=== PATIENT | female | born 1980 | race Caucasian/White ===

== ENCOUNTER 2020-10-07 20:09 | Emergency (ER) | payer BC, SELFPAY ==
[2020-10-07 20:25] VITALS: BP 128/76; PULSE 80; RESP 16; TEMP 36.2; O2SAT 99
[2020-10-07 20:29] VITALS: BP 128/76; PULSE 80; RESP 16; TEMP 36.2; O2SAT 99
--- NOTE | 2020-10-07 20:39 | PC.NURSE ---
SL inserted. labs drawn. patient on BP and O2 monitors. family member at bedside. call light in reach. aware of current treatment plan. protocol orders entered. waiting for further orders from provider.
[2020-10-07 20:44] LABS: Basophils Absolute Auto 0.1 K/mm3 (0.0-0.1); Basophils Percent Auto 0.7 % (0.2-1.2); Eosinophils Absolute Auto 0.3 K/mm3 (0-0.3); Eosinophils Percent Auto 3.8 % (0-4.4); Hematocrit 35.5 % (37.0-47.0); Hemoglobin 10.6 g/dL (12.0-15.0); Immature Granulocyte Absolute 0.03 K/mm3 (0.00-0.031); Immature Granulocyte Percent A 0.3 % (0-0.5); Lymphocytes Absolute Auto 3.04 K/mm3 (0.9-3.2); Lymphocytes Percent Auto 35.3 % (18.3-44.2); Mean Corpuscular HGB Conc 29.9 g/dl (32-36); Mean Corpuscular Hemoglobin 22.4 pg (26-34); Mean Corpuscular Volume 74.9 fl (80-100); Mean Platelet Volume 11.5 fl (7.4-10.4); Monocytes Absolute Auto 0.5 K/mm3 (0.1-0.6); Monocytes Percent Auto 5.6 % (2.6-8.5); Neutrophils Absolute Auto 4.7 K/mm3 (1.3-6.7); Neutrophils Percent Auto 54.3 % (45.5-73.1); Platelet Count Result 312 k/mm3 (150-375); Red Blood Count 4.74 M/mm3 (4.2-5.4); Red Cell Distribution Width 16.8 % (11.5-14.5); White Blood Count 8.6 K/mm3 (4.5-10.0)
[2020-10-07 20:56] LABS: Alanine Aminotransferase 27 U/L (4-35); Albumin Level 3.9 g/dL (3.5-5.1); Alkaline Phosphatase 108 U/L (38-126); Anion Gap 8 mmol/L (8-16); Aspartate Amino Transferase 22 U/L (14-36); Bilirubin,Total 0.3 mg/dL (0.2-1.3); Blood Urea Nitrogen 13 mg/dL (7-17); Carbon Dioxide 23 mmol/L (22-30); Chloride 110 mmol/L (98-107); Estimated CRCL calculation 83 ml/min; Estimated Glomerular Filt Rate > 60; Glucose 114 mg/dL (65-105); Potassium 3.9 mmol/L (3.4-5.0); Sodium 141 mmol/L (137-145)
[2020-10-07 20:59] LABS: Hypochromasia 1+ (NORMAL); Platelet Estimate Adequate (Adequate)
[2020-10-07 21:01] LABS: Prothrombin Time 13.8 Seconds (11.1-14.7)
[2020-10-07 21:03] LABS: Partial Thromboplastin Time 25.8 SECONDS (22.3-36.8)
[2020-10-07 21:18] VITALS: O2SAT 100
--- NOTE | 2020-10-07 21:28 | PC.NURSE ---
resting on stretcher. no change in condition. alert. oriented. family member at bedside. waiting for all tests to be resulted.
--- NOTE | 2020-10-07 21:31 | ED.GIBLEED ---
HPI - GI Bleed General Chief complaint: GI Bleed Stated complaint: blood in stool Time Seen by Provider: 10/07/20 21:11 Source: patient Mode of arrival: ambulatory Limitations: no limitations History of Present Illness HPI Narrative: Patient is a 3-year-old female sent here by her PCP due to 3+ Hemoccult test. Patient states that my iron was low that is why they tested me , denies any symptoms.. Patient denies any black stool or bright red blood in her stool. Patient denies abdominal pain, hemoptysis, hematemesis, melena or hematochezia. Patient denies fever or chills. Related Data Home Medications Medication Instructions Recorded Confirmed sumatriptan succinate 25 mg tablet 25 mg PO .prn tablet 08/11/20 09/30/20 metoprolol tartrate 25 mg tablet See Rx Instructions PO BID tablet 08/18/20 09/30/20 Allergies Allergy/AdvReac Type Severity Reaction Status Date / Time codeine AdvReac Mild Nausea Verified 10/07/20 20:38 Review of Systems Review of Systems: All systems reviewed & are unremarkable except as noted in HPI and below Constitutional: Constitutional: Denies body ache(s), Denies chills, Denies excessive sweating, Denies fatigue, Denies fever(s), Denies headache(s), Denies lethargy, Denies malaise, Denies weakness and Denies weight loss Eyes: Eyes: Denies blurry vision, Denies change in vision and Denies loss of vision ENT: Denies dizziness, Denies ear discharge, Denies headache(s), Denies lip swelling, Denies epistaxis, Denies nasal congestion, Denies neck pain, Denies throat swelling and Denies tongue swelling Cardiovascular: Cardiovascular: Denies chest pain, Denies chest pain at rest, Denies chest pain with activity, Denies diaphoresis, Denies rapid heart rate, Denies edema, Denies irregular heart rhythm, Denies lightheadedness, Denies palpitations, Denies dyspnea and Denies dyspnea on exertion Respiratory: Respiratory: Denies chest congestion, Denies cough, Denies hemoptysis, Denies dyspnea and Denies dyspnea on exertion Gastrointestinal: Gastrointestinal: Denies abdominal pain, Denies melena, Denies hematochezia, Denies diarrhea, Denies nausea, Denies vomiting and Denies hematemesis Musculoskeletal: Musculoskeletal: Denies abnormal gait, Denies deformity, Denies joint swelling, Denies limited range of motion, Denies neck pain and Denies numbness Neurologic: Denies Abnormal speech present, Denies abnormal gait, Denies confusion, Denies dizziness, Denies headache(s), Denies focal weakness, Denies loss of vision, Denies numbness, Denies Other visual disturbances, Denies Sensory deficit (Neuro) and Denies weakness Psychiatric: Psychiatric: Denies confusion, Denies depression, Denies auditory hallucinations, Denies homicidal ideation and Denies suicidal ideation Endocrine: Endocrine: Denies cold intolerance, Denies excessive sweating, Denies fatigue, Denies heat intolerance and Denies palpitations Hematologic/Lymphatic: Hematologic/Lymphatic: Denies easy bleeding and Denies easy bruising Allergic/Immunologic: Allergic/Immunologic: Denies lip swelling, Denies throat swelling and Denies tongue swelling PMFSH Past Medical History Medical History Allergies Anxiety Cervical cancer Depression Encounter for Routine Gynecological Examination GERD (gastroesophageal reflux disease) Headache, migraine Heart attack Heart attack History of blood clots History of miscarriage PTSD (post-traumatic stress disorder) Surgical History Surgical History Fibroid, uterine 2017 H/O heart artery stent 03/08/2020 H/O laparoscopy H/O tubal ligation 2005 History of appendectomy age 10 History of cholecystectomy age 29 Hx of anterior cruciate ligament surgery 03/2018 Hx of foot surgery 2 screws and ligament left foot 07/2019 Malignant tumor of uterus 2017 Status post balloon dilatation of esophageal stricture
--- NOTE | 2020-10-07 21:41 | PC.NURSE ---
sitting on stretcher. family member in room. waiting for further orders.
[2020-10-07] MEDS: SODIUM CHLORIDE 0.9% IV 1,000 ML 999 ML IV CONT (22:02)
[2020-10-07 23:42] VITALS: BP 102/67; PULSE 82; RESP 18; O2SAT 98
== END 2020-10-07 23:44 | disposition home or self-care (01) ==
PROVIDERS: Emergency Medicine; Emergency Provider Emergency Medicine; PCP Family Medicine
DX: K92.2 Gastrointestinal hemorrhage, unspecified (principal); K21.9 Gastro-esophageal reflux disease without esophagitis; I25.2 Old myocardial infarction; F32.9 Major depressive disorder, single episode, unspecified; F41.9 Anxiety disorder, unspecified; F43.10 Post-traumatic stress disorder, unspecified; Z85.41 Personal history of malignant neoplasm of cervix uteri; Z95.5 Presence of coronary angioplasty implant and graft; Z87.891 Personal history of nicotine dependence
CPT/HCPCS: 36415; 80053; 85025; 85610; 85730; 86850; 86900; 86901; 96360; 96361; 99283; J7030

== ENCOUNTER 2020-10-09 09:09 | Outpatient (CLI) | payer BC, SELFPAY ==
--- NOTE | 2020-10-09 09:14 | ECHO_ITS ---
Patient Info Name: Bryce Gaspar Age: 39 years : 1980 Gender: Female Ht: 64 in Wt: 210 lbs BSA: 2.12 m2 HR: 66 bpm BP: 89 / 68 mmHg Technical Quality: Good Exam Date: 10/09/2020 9:34 AM Exam Location: [facility] Patient Status: Outpatient Admit Date: 10/09/2020 Staff Ordering Physician: Edwardo Vazquez DO Glove Operator: Diane La RDCS Attending Provider: Edwardo Vazquez DO Referring Physician: George VEGAS; Exam Type: CA echo doppler color flow Study Info Indications - intracardiac thrombosis Complete two-dimensional, color flow and Doppler transthoracic echocardiogram is performed. Summary 1. Complete two-dimensional, color flow and Doppler transthoracic echocardiogram is performed. 2. Left ventricular chamber dimension is normal. 3. Left ventricular systolic function is normal, estimated at 55-60%. 4. The left ventricular diastolic function is normal. 5. No mural apical thrombus. 6. E/e' 9 is minimally elevated. 7. Global longitudinal strain is normal at -18.6%. 8. There is mild mitral valve regurgitation. 9. There is mild tricuspid valve regurgitation. 10. No pulmonary hypertension, estimated pulmonary arterial systolic pressure is 26 mmHg. Left Ventricle E/e' 9 is minimally elevated. Global longitudinal strain is normal at -18.6%. No mural apical thrombus. Left ventricular chamber dimension is normal. Left ventricular systolic function is normal, estimated at 55-60%. The left ventricular diastolic function is normal. Right Ventricle Right ventricular chamber dimension is normal. Right ventricular systolic function is normal. Left Atria Left atrial chamber dimension is normal. Right Atria Right atrial chamber dimension is normal. Aortic Valve The aortic valve is trileaflet. There is no aortic valve stenosis. There is no aortic valve regurgitation. Pulmonic Valve There is no pulmonic regurgitation. Mitral Valve There is no mitral valve stenosis. There is mild mitral valve regurgitation. Tricuspid Valve There is mild tricuspid valve regurgitation. No pulmonary hypertension, estimated pulmonary arterial systolic pressure is 26 mmHg. Pericardium/Pleural There is no pericardial effusion. Inferior Vena Cava Normal inferior vena cava with >50% collapse upon inspiration consistent with normal right atrial pressure, 5 mmHg. Aorta The aortic root size at the sinus of Valsalva is normal. Left Ventricular Outflow Tract Name Value Normal LVOT 2D LVOT Diameter 2.0 cm LVOT Doppler LVOT Peak Gradient 5 mmHg LVOT Mean Gradient 3 mmHg LVOT VTI 23 cm LVOT VTI/AV VTI Ratio 0.7 LVOT Stroke Volume 69 ml LVOT CO 13.8 l/min LVOT CI 6.5 l/min/m2 Pulmonic Valve Name Value Normal
== END 2020-10-09 09:10 | disposition home or self-care (01) ==
PROVIDERS: PCP Family Medicine; Visit Provider Internal Medicine Cardiovascular Disease
DX: I51.3 Intracardiac thrombosis, not elsewhere classified (principal); I34.0 Nonrheumatic mitral (valve) insufficiency; I36.1 Nonrheumatic tricuspid (valve) insufficiency
CPT/HCPCS: 93306

== ENCOUNTER → 2020-11-04 00:47 | Outpatient (CLI) | payer BC, SELFPAY ==
[2020-11-04 19:08] LABS: SARS-CoV-2 RNA PCR Negative
== END ==
PROVIDERS: PCP Family Medicine; Visit Provider Internal Medicine Gastroenterology
DX: Z01.812 Encounter for preprocedural laboratory examination (principal); Z20.822 Contact with and (suspected) exposure to COVID-19
CPT/HCPCS: C9803; U0003; U0005

== ENCOUNTER 2020-11-07 00:37 | Day surgery (SDC) | payer BC, SELFPAY ==
[2020-10-28 15:52] VITALS: BMI 37.3
--- NOTE | 2020-11-06 13:32 | WPDANESEPPF ---
Anes - Initial Pre Proc Eval Procedure: Operation Date: 11/07/20 09:00 Proposed Procedures p Esophagogastroduodenoscopy & Colonoscopy - Spike Borrego MD Date/Time: 11/06/20 13:32 Surgeon: Spike Borrego MD Pre Op Diagnosis: Anemia Patient Data Age: 40 Gender: F Height: 1.63 m Weight: 98.5 kg Allergies Allergy/AdvReac Type Severity Reaction Status Date / Time codeine AdvReac Mild Nausea Verified 11/07/20 07:55 Home Medications Medication Instructions Recorded Confirmed Type atorvastatin 40 mg tablet 40 mg PO DAILY #90 tablet 08/11/20 11/07/20 Rx clopidogrel 75 mg tablet 75 mg PO DAILY #90 tablet 08/11/20 11/07/20 Rx pantoprazole 40 mg tablet,delayed 40 mg PO BID #180 tablet 08/11/20 11/07/20 Rx release topiramate 25 mg tablet 25 mg PO DAILY #90 tablet 08/11/20 11/07/20 Rx metoprolol tartrate 25 mg tablet 6.25 mg PO BID tablet 08/18/20 11/07/20 History folic acid 1 mg tablet 1 mg PO DAILY #90 tablet 09/25/20 11/07/20 Rx sodium,potassium,mag sulfates 17.5 See Rx Instructions PO .COMPLEX 10/14/20 11/07/20 Rx gram-3.13 gram-1.6 gram oral soln #354 ml clonazepam 0.5 mg tablet 0.5 mg PO BID PRN #30 tablet 11/04/20 11/07/20 Rx Patient hx anesthesia problems: none Family hx anesthesia problems: none PMFSH Past Medical History Medical History Allergies Anxiety Cervical cancer Depression Encounter for Routine Gynecological Examination GERD (gastroesophageal reflux disease) Headache, migraine Heart attack Heart attack History of blood clots History of miscarriage PTSD (post-traumatic stress disorder) Surgical History Surgical History Fibroid, uterine 2017 H/O heart artery stent 03/08/2020 H/O laparoscopy H/O tubal ligation 2005 History of appendectomy age 10 History of cholecystectomy age 29 Hx of anterior cruciate ligament surgery 03/2018 Hx of foot surgery 2 screws and ligament left foot 07/2019 Malignant tumor of uterus 2017 Status post balloon dilatation of esophageal stricture 9years old Family History Family History Father Carcinoma of colon Hypertension Depression Anxiety Mother Asthma Breast cancer Anxiety Depression Heart disease Cerebrovascular accident Sibling Asthma Anxiety Depression Unknown Cancer Son Asthma Anxiety Depression Heart disease Grandparent Heart disease Cerebrovascular accident Breast cancer Grandparent Diabetes mellitus Heart disease Cerebrovascular accident Social History Social History Smoking packs per day: 0.5 Smoking cigarettes per day: 10.0 Years smoked: 20 Smoking pack-years: 10.00 Smoking status: Former smoker Tobacco type: cigarettes Smoking end date: 03/09/20 Alcohol intake: never Substance use: current Substance use type: marijuana Other substance usage details: PRESCRIPTION Gender identity (if verbalized by the patient): Female Spiritual care concerns: No Agree to blood products: Yes Anes - Eval Final PreProcedure Day of Procedure 11/06/20 13:32 Patient weight: obese Heart: regular rate and rhythm Lungs: clear to auscultation and normal air movement Airway: Mallampati scale class II Neurological: alert and oriented Last oral intake: >/= 8 hours ASA classification: III Emergent: no Anesthetic plan: proceed Anesthesia type and monitoring: general GIVS Informed Consent: The patient's anesthetic plan and its attendant risks and benefits were discussed with the patient/family/POA. Questions were solicited and answers provided to the satisfaction of the patient/family/POA.
[2020-11-07 08:00] VITALS: BP 106/64; PULSE 76; RESP 20; TEMP 36.4; O2SAT 100
[2020-11-07] MEDS: LACTATED RINGERS 1,000 ML 150 ML IV CONT (08:11)
--- NOTE | 2020-11-07 09:07 | PM.HPGS ---
History of Present Illness History of Present Illness Consent: Risks, benefits, and alternatives have been discussed and questions answered. Patient agrees to proceed with procedure. Chief complaint: Anemia Narrative: Bryce Gaspar is a 40 year old female CAD, [place] with stent placed x 3 in 03/2020 on Plavix (Dr. Vazquez), GERD, menorrhagia, HLD, cervical dysplasia, cholecystectomy. We saw her recently because gerd, abdominal pain, anemia and positive Hemoccult, she is on protonix. Review of Systems Constitutional: Constitutional: Denies headache(s) and Denies weakness Eyes: Eyes: Denies blurry vision ENT: Reports Normal hearing present, Denies headache(s) and Denies neck pain Cardiovascular: Cardiovascular: Denies chest pain and Denies dyspnea Respiratory: Respiratory: Denies dyspnea Gastrointestinal: Gastrointestinal: Reports no additional gastrointestinal complaints Genitourinary: Genitourinary: Denies dysuria Musculoskeletal: Musculoskeletal: Denies neck pain Integumentary/Breasts: Skin/Breast: Denies dry skin Neurologic: Reports Normal hearing present, Denies headache(s) and Denies weakness Psychiatric: Psychiatric: Denies anxiety Endocrine: Endocrine: Denies change in body appearance Hematologic/Lymphatic: Hematologic/Lymphatic: Denies easy bleeding Allergic/Immunologic: Allergic/Immunologic: Denies urticaria PMFSH Past Medical History Medical History Allergies Anxiety Cervical cancer Depression Encounter for Routine Gynecological Examination GERD (gastroesophageal reflux disease) Headache, migraine Heart attack Heart attack History of blood clots History of miscarriage PTSD (post-traumatic stress disorder) Surgical History Surgical History Fibroid, uterine 2017 H/O heart artery stent 03/08/2020 H/O laparoscopy H/O tubal ligation 2005 History of appendectomy age 10 History of cholecystectomy age 29 Hx of anterior cruciate ligament surgery 03/2018 Hx of foot surgery 2 screws and ligament left foot 07/2019 Malignant tumor of uterus 2017 Status post balloon dilatation of esophageal stricture 9years old Family History Family History Father Carcinoma of colon Hypertension Depression Anxiety Mother Asthma Breast cancer Anxiety Depression Heart disease Cerebrovascular accident Sibling Asthma Anxiety Depression Unknown Cancer Son Asthma Anxiety Depression Heart disease Grandparent Heart disease Cerebrovascular accident Breast cancer Grandparent Diabetes mellitus Heart disease Cerebrovascular accident Social History Social History Smoking packs per day: 0.5 Smoking cigarettes per day: 10.0 Years smoked: 20 Smoking pack-years: 10.00 Smoking status: Former smoker Tobacco type: cigarettes Smoking end date: 03/09/20 Alcohol intake: never Substance use: current Substance use type: marijuana Other substance usage details: PRESCRIPTION Gender identity (if verbalized by the patient): Female Spiritual care concerns: No Agree to blood products: Yes Meds Home Medications and Allergies Home Medications Medication Instructions Recorded Confirmed Type atorvastatin 40 mg tablet 40 mg PO DAILY #90 tablet 08/11/20 11/07/20 Rx clopidogrel 75 mg tablet 75 mg PO DAILY #90 tablet 08/11/20 11/07/20 Rx pantoprazole 40 mg tablet,delayed 40 mg PO BID #180 tablet 08/11/20 11/07/20 Rx release topiramate 25 mg tablet 25 mg PO DAILY #90 tablet 08/11/20 11/07/20 Rx metoprolol tartrate 25 mg tablet 6.25 mg PO BID tablet 08/18/20 11/07/20 History folic acid 1 mg tablet 1 mg PO DAILY #90 tablet 09/25/20 11/07/20 Rx sodium,potassium,mag sulfates 17.5 See Rx Instructions PO .COMPLEX 10/14/20
--- NOTE | 2020-11-07 09:31 | SUR.OPER ---
RESOLUTION CLIP X1 LOT [id number]
[2020-11-07 09:37] VITALS: BP 89/56; PULSE 64; RESP 18; O2SAT 100
[2020-11-07 09:47] VITALS: BP 111/68; PULSE 68; RESP 20; O2SAT 100
[2020-11-07 09:57] VITALS: BP 104/58; PULSE 52; RESP 18; O2SAT 100
== END 2020-11-07 10:12 | disposition home or self-care (01) ==
PROVIDERS: PCP Family Medicine; Visit Provider Internal Medicine Gastroenterology
PROC: 0DJ08ZZ Inspection of Upper Intestinal Tract, Via Natural or Artificial Opening Endoscopic (ICD-10-PCS; CPT 43235; principal; 2020-11-07 09:00)
DX: D50.0 Iron deficiency anemia secondary to blood loss (chronic) (principal); K22.70 Barrett's esophagus without dysplasia; K29.50 Unspecified chronic gastritis without bleeding; K44.9 Diaphragmatic hernia without obstruction or gangrene; K21.00 Gastro-esophageal reflux disease with esophagitis, without bleeding; D12.5 Benign neoplasm of sigmoid colon; K92.1 Melena; K64.8 Other hemorrhoids; I25.2 Old myocardial infarction; F41.8 Other specified anxiety disorders; Z85.41 Personal history of malignant neoplasm of cervix uteri; F43.10 Post-traumatic stress disorder, unspecified; Z86.718 Personal history of other venous thrombosis and embolism; Z87.891 Personal history of nicotine dependence; F12.90 Cannabis use, unspecified, uncomplicated; E66.9 Obesity, unspecified; Z68.35 Body mass index [BMI] 35.0-35.9, adult; R10.30 Lower abdominal pain, unspecified; Z79.02 Long term (current) use of antithrombotics/antiplatelets; Z95.5 Presence of coronary angioplasty implant and graft
CPT/HCPCS: 45385; 43239; 88305; 88313; J2704; J7120

== ENCOUNTER 2020-12-02 08:25 | Outpatient (CLI) | payer BC, SELFPAY ==
--- NOTE | ~2020-12-02 | XR_ITS ---
EXAMINATION: XR UGIAC w barium swallow EXAM DATE: 12/02/2020 08:55 INDICATION: K21.00 - Gastro-esophageal reflux disease with esophagitis. Hamm's esophagus. TECHNIQUE: Standard single and double contrast barium esophagram and upper GI examination was perform ed. Pulsed dose reduction fluoroscopy was used with fluoroscopic time of 0.5 minutes. A total of 10 1 images obtained for the exam. The DAP for this procedure was 1.8 Gycm2. There is no prior study f or comparison. FINDINGS: The pharynx is symmetric and without evidence of mass lesion or mucosal irregularity. Ther e is no esophageal stricture, diverticulum or mass identified. Gastroesophageal junction is normal i n appearance. Reflux was not demonstrated during this examination. The stomach has a normal appearance without evidence of mass lesion, ulceration or filling defect. T here is normal rugal fold pattern. The duodenum and duodenal sweep are normal in appearance. IMPRESSION: Normal exam. Reviewed, dictated and finalized at location A. IMPRESSION: Normal exam.
== END 2020-12-02 08:26 | disposition home or self-care (01) ==
PROVIDERS: PCP Family Medicine; Visit Provider Surgery
DX: K21.00 Gastro-esophageal reflux disease with esophagitis, without bleeding (principal)
CPT/HCPCS: 74246

== ENCOUNTER 2021-04-10 08:19 | Outpatient (CLI) | payer BC, SELFPAY ==
--- NOTE | ~2021-04-10 | XR_ITS ---
EXAMINATION: XR UGI water soluble w sbs DATE: 04/10/2021 09:53 INDICATION: Nausea with vomiting TECHNIQUE: The patient drank water-soluble contrast. Conventional supine abdomen radiographs and fluo roscopy of the esophagus, stomach, and small bowel were performed. Fluoroscopy exposure time was 2.1 minutes. The DAP for this procedure was 59.099 Gycm2. COMPARISON: None. FINDINGS: UPPER GASTROINTESTINAL SERIES: There is no mass or stricture of the esophagus. Esophageal motility is normal. There is no hiatal her kim. There was no gastroesophageal reflux with provocative maneuvers. A moderate volume of contrast p ersists in the stomach at the 30 minute time point. The stomach shows a normal folding pattern.] SMALL BOWEL SERIES: Transit time from the stomach to proximal colon was approximately 30 minutes. There is normal caliber and mucosal fold pattern throughout the small bowel. Terminal ileum is normal. No tethering or abn ormal mass effect observed upon the small bowel with real-time fluoroscopy. IMPRESSION: 1. No definite correlate identified for the patient's symptoms. Moderate amount of contrast material the persisting in the stomach at the 30 minute time point. Reviewed, dictated and finalized at location A. IMPRESSION: 1. No definite correlate identified for the patient's symptoms. Moderate amount of contrast material the persisting in the stomach at the 30 minute time point .
[2021-04-10 10:23] LABS: Anion Gap 7 mmol/L (8-16); Blood Urea Nitrogen 8 mg/dL (7-17); Calcium 9.8 mg/dL (8.4-10.2); Carbon Dioxide 23 mmol/L (22-30); Chloride 110 mmol/L (98-107); Estimated Glomerular Filt Rate > 60; Glucose 114 mg/dL (65-110); Potassium 4.2 mmol/L (3.4-5.0); Sodium 140 mmol/L (137-145)
[2021-04-10 11:27] LABS: Beta HCG Quantitative < 2.39 mIU/ML
[2021-04-10 11:30] LABS: Folic Acid 13.4 ng/mL (2.76->20)
[2021-04-13 14:41] LABS: LH 10.7 mIU/mL (***); Progesterone 1.9 ng/mL (***); Prolactin 10.4 ng/mL (***)
[2021-04-16 18:08] LABS: Estradiol, Ultrasensitive 100 pg/mL
== END 2021-04-10 08:20 | disposition home or self-care (01) ==
PROVIDERS: PCP Family Medicine; Visit Provider Surgery
DX: R11.2 Nausea with vomiting, unspecified (principal); N91.2 Amenorrhea, unspecified; E87.6 Hypokalemia; D50.9 Iron deficiency anemia, unspecified
CPT/HCPCS: 36415; 74240; 74248; 80048; 82607; 82670; 82746; 83001; 83002; 84144; 84146; 84702

== ENCOUNTER 2021-04-24 07:07 | Outpatient (CLI) | payer BC, SELFPAY ==
--- NOTE | ~2021-04-24 | NM_ITS ---
EXAM: NM gastric emptying study DATE: 04/24/2021 12:36 CDT INDICATION: Functional dyspepsia. TECHNIQUE: A gastric emptying study was performed using the methodology of Landy INIGUEZ, et al. J Nucl Med 2007; 48:568-572. The patient was given a meal consisting of 2 scrambled eggs labeled with mCi T c-99m sulfur colloid, 2 slices of toast, two packages of jam, and approximately 120 mL of water. Simu ltaneous anterior and posterior 1-min images of the abdomen were obtained with the patient supine at multiple time points over a total period of 4 hours. The geometric mean of anterior and posterior vie ws was determined, and the percentage retention was calculated for each time point. COMPARISON: Upper GI dated 04/10/2021. FINDINGS: Gastric retention of the radiotracer-labeled meal was 69%, 61%, and 29% at the 1-hour, 2-h our, and 4-hour time points, respectively. With this technique, apparent rapid gastric emptying is rome ggested by <30% gastric retention at 1 hour. Delayed gastric emptying is defined by gastric retention of >90% at 1 hour, >60% retention at 2 hours, or >10% retention at 4 hours. IMPRESSION: 1. Delayed gastric emptying. Reviewed, dictated and finalized at location A.
== END 2021-04-24 07:08 | disposition home or self-care (01) ==
PROVIDERS: PCP Family Medicine; Visit Provider Surgery
DX: K21.00 Gastro-esophageal reflux disease with esophagitis, without bleeding (principal); K30 Functional dyspepsia; R11.2 Nausea with vomiting, unspecified
CPT/HCPCS: 78264; A9541

== ENCOUNTER 2021-12-21 00:14 | Day surgery (SDC) | payer BC, SELFPAY ==
[2021-12-04 15:11] VITALS: BMI 34.4
--- NOTE | 2021-12-21 10:47 | WPDANESEPPF ---
Anes - Initial Pre Proc Eval Procedure: Operation Date: 12/21/21 13:00 Proposed Procedures p Esophagogastroduodenoscopy - Spike Borrego MD Date/Time: 12/21/21 10:47 Surgeon: Spike Borrego MD Pre Op Diagnosis: batres's esophagus Patient Data Age: 41 Gender: F Height: 1.63 m Weight: 90.9 kg Allergies Allergy/AdvReac Type Severity Reaction Status Date / Time acetaminophen [From Percocet] Allergy Severe Hives Verified 12/21/21 10:47 oxycodone [From Percocet] Allergy Severe Hives Verified 12/21/21 10:47 codeine AdvReac Mild Nausea Verified 12/21/21 10:47 Home Medications Medication Instructions Recorded Confirmed Type melatonin 5 mg capsule 5 mg PO DAILY 11/25/20 12/17/21 History topiramate 25 mg tablet 25 mg PO BID #180 tablet 01/09/21 12/17/21 Rx albuterol sulfate 90 mcg/actuation 2 puff INHALATION Q4H PRN #8.5 g 02/10/21 12/17/21 Rx aerosol inhaler paroxetine HCl 10 mg tablet 10 mg PO DAILY #30 tablet 03/24/21 12/17/21 Rx ferrous sulfate 325 mg (65 mg 325 mg PO DAILY #90 tablet 06/30/21 12/17/21 Rx iron) tablet pantoprazole 40 mg tablet,delayed 40 mg PO BID #180 tablet 06/30/21 12/17/21 Rx release potassium chloride 10 mEq 10 meq PO DAILY #30 tablet 06/30/21 12/17/21 Rx tablet,extended release metoclopramide HCl 5 mg tablet 5 mg PO Q8H 30 Days #90 tablet 07/02/21 12/17/21 Rx ondansetron HCl 4 mg tablet 4 mg PO Q8H PRN #60 tablet 07/02/21 12/17/21 Rx atorvastatin 40 mg tablet See Rx Instructions .ROUTE 10/05/21 12/17/21 Rx .COMPLEX #90 tablet clopidogrel 75 mg tablet See Rx Instructions .ROUTE 10/05/21 12/17/21 Rx .COMPLEX #90 tablet folic acid 1 mg tablet See Rx Instructions .ROUTE 10/05/21 12/17/21 Rx .COMPLEX #90 tablet prazosin 1 mg capsule 1 mg PO QHS 12/17/21 12/17/21 History Patient hx anesthesia problems: none Family hx anesthesia problems: none Results Review: All pre-operative results and documents have been reviewed as part of the pre-operative evaluation. [facility] Past Medical History Medical History Adenomatous colon polyp Allergies Anxiety Batres esophagus Batres's esophagus with esophagitis Blood in stool Cervical cancer Depression Encounter for Routine Gynecological Examination Gastroparesis GERD (gastroesophageal reflux disease) Headache, migraine Heart attack Heart attack Hiatal hernia History of blood clots History of miscarriage Nausea and vomiting in adult PTSD (post-traumatic stress disorder) Surgical History Surgical History Fibroid, uterine 2016 H/O heart artery stent 03/08/2020 H/O laparoscopy H/O tubal ligation 2005 History of appendectomy age 10 History of cholecystectomy age 29 History of colonoscopy History of esophagogastroduodenoscopy (EGD) Hx of anterior cruciate ligament surgery 03/2018 Hx of foot surgery 2 screws and ligament left foot 07/2019 Malignant tumor of uterus 2017 Status post balloon dilatation of esophageal stricture 9years old Family History Family History Father Carcinoma of colon Hypertension Depression Anxiety Mother Asthma Breast cancer Anxiety Depression Heart disease Cerebrovascular accident Sibling Asthma Anxiety Depression Unknown Cancer Son Asthma Anxiety Depression Heart disease Grandparent Heart disease Cerebrovascular accident Breast cancer Grandparent Diabetes mellitus Heart disease Cerebrovascular accident Social History Social History Smoking packs per day: 0.5 Smoking cigarettes per day: 10.0 Years smoked: 20 Smoking pack-years: 10.00 Smoking status: Current every day smoker Tobacco type: cigarettes Smoking end date: 03/09/20 Alcohol intake: never Alcohol use details: social Velázquez
[2021-12-21 10:49] VITALS: BP 103/72; PULSE 64; RESP 20; TEMP 36.4; O2SAT 99
[2021-12-21] MEDS: LACTATED RINGERS 1,000 ML 150 ML IV CONT (11:02)
--- NOTE | 2021-12-21 11:20 | PM.HPGS ---
History of Present Illness History of Present Illness Consent: Risks, benefits, and alternatives have been discussed and questions answered. Patient agrees to proceed with procedure. 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, here to reassess, using ppi Review of Systems Constitutional: Constitutional: Denies headache(s) and Denies weakness Eyes: Eyes: Denies blurry vision ENT: Reports Normal hearing present, Denies headache(s) and Denies neck pain Cardiovascular: Cardiovascular: Denies chest pain and Denies dyspnea Respiratory: Respiratory: Denies dyspnea Gastrointestinal: Gastrointestinal: Reports no additional gastrointestinal complaints Genitourinary: Genitourinary: Denies dysuria Musculoskeletal: Musculoskeletal: Denies neck pain Integumentary/Breasts: Skin/Breast: Denies dry skin Neurologic: Reports Normal hearing present, Denies headache(s) and Denies weakness Psychiatric: Psychiatric: Denies anxiety Endocrine: Endocrine: Denies change in body appearance Hematologic/Lymphatic: Hematologic/Lymphatic: Denies easy bleeding Allergic/Immunologic: Allergic/Immunologic: Denies urticaria PMFSH Past Medical History Medical History Adenomatous colon polyp Allergies Anxiety Batres esophagus Batres's esophagus with esophagitis Blood in stool Cervical cancer Depression Encounter for Routine Gynecological Examination Gastroparesis GERD (gastroesophageal reflux disease) Headache, migraine Heart attack Heart attack Hiatal hernia History of blood clots History of miscarriage Nausea and vomiting in adult PTSD (post-traumatic stress disorder) Surgical History Surgical History Fibroid, uterine 2017 H/O heart artery stent 03/08/2020 H/O laparoscopy H/O tubal ligation 2005 History of appendectomy age 10 History of cholecystectomy age 29 History of colonoscopy History of esophagogastroduodenoscopy (EGD) Hx of anterior cruciate ligament surgery 03/2018 Hx of foot surgery 2 screws and ligament left foot 07/2019 Malignant tumor of uterus 2017 Status post balloon dilatation of esophageal stricture 9years old Family History Family History Father Carcinoma of colon Hypertension Depression Anxiety Mother Asthma Breast cancer Anxiety Depression Heart disease Cerebrovascular accident Sibling Asthma Anxiety Depression Unknown Cancer Son Asthma Anxiety Depression Heart disease Grandparent Heart disease Cerebrovascular accident Breast cancer Grandparent Diabetes mellitus Heart disease Cerebrovascular accident Social History Social History Smoking packs per day: 0.5 Smoking cigarettes per day: 10.0 Years smoked: 20 Smoking pack-years: 10.00 Smoking status: Current every day smoker Tobacco type: cigarettes Smoking end date: 03/09/20 Alcohol intake: never Alcohol use details: social Substance use: current Substance use type: marijuana Other substance usage details: PRESCRIPTION Living arrangements: with family Gender identity (if verbalized by the patient): Female Spiritual care concerns: No Agree to blood products: Yes Meds Home Medications and Allergies Home Medications Medication Instructions Recorded Confirmed Type melatonin 5 mg capsule 5 mg PO DAILY 11/25/20 12/17/21 History topiramate 25 mg tablet 25 mg PO BID #180 tablet 01/09/21 12/17/21 Rx albuterol sulfate 90 mcg/actuation 2 puff INHALATION Q4H PRN #8.5 g 02/10/21 12/17/21 Rx aerosol inhaler paroxetine HCl 10 mg tablet 10 mg PO DAILY #30 tablet 03/24/21 12/17/21 Rx ferrous sulfate 325 mg (65 mg 325 mg PO DAILY #90 tablet 06/30/21 12/17/21 Rx iron) t
[2021-12-21 11:31] VITALS: BP 80/50; PULSE 64; RESP 17; O2SAT 95
[2021-12-21 11:41] VITALS: BP 90/58; PULSE 59; RESP 16; O2SAT 95
[2021-12-21 11:51] VITALS: BP 100/63; PULSE 55; RESP 16; O2SAT 97
[2021-12-21 12:01] VITALS: BP 102/69; PULSE 60; RESP 17; O2SAT 99
== END 2021-12-21 12:13 | disposition home or self-care (01) ==
PROVIDERS: Visit Provider Internal Medicine Gastroenterology
PROC: 0DJ08ZZ Inspection of Upper Intestinal Tract, Via Natural or Artificial Opening Endoscopic (ICD-10-PCS; CPT 43235; principal; 2021-12-21 13:00)
DX: K21.00 Gastro-esophageal reflux disease with esophagitis, without bleeding (principal); K44.9 Diaphragmatic hernia without obstruction or gangrene; K31.84 Gastroparesis; F41.8 Other specified anxiety disorders; I25.2 Old myocardial infarction; F43.10 Post-traumatic stress disorder, unspecified; Z85.41 Personal history of malignant neoplasm of cervix uteri; Z95.5 Presence of coronary angioplasty implant and graft; F17.210 Nicotine dependence, cigarettes, uncomplicated; F12.90 Cannabis use, unspecified, uncomplicated; Z79.02 Long term (current) use of antithrombotics/antiplatelets; Z79.51 Long term (current) use of inhaled steroids; E66.9 Obesity, unspecified; Z68.33 Body mass index [BMI] 33.0-33.9, adult
CPT/HCPCS: 43239; 88305; 88313; J2704; J7120

== ENCOUNTER 2022-03-15 17:07 | Emergency (ER) | payer BC, SELFPAY ==
--- NOTE | ~2022-03-15 | CT_ITS ---
EXAMINATION: CT abdomen pelvis w con DATE: 03/15/2022 20:18 INDICATION: Abdominal pain and vomiting TECHNIQUE: Computed tomography (CT) of the abdomen and pelvis was performed with 100 cc Omnipaque 300 intravenous contrast. The dose-length product was 1098.31 mGy-cm. Automated exposure control and ite rative reconstruction technique were employed. COMPARISON: None. FINDINGS: Lung bases are unremarkable. Heart size normal. No significant pleural or pericardial effus ion. There is nondependent gas in the right ventricle, likely from recent injection. The liver, splee n, pancreas, adrenal glands are unremarkable. There is intermediate density renal masses bilaterally which may represent complicated cysts, although further evaluation with ultrasound is recommended on a nonemergent basis. Nonobstructive bowel gas pattern. No free air or free fluid. No significant vasc ular abnormality. No lymphadenopathy. There is nonobstructing left renal stone. IMPRESSION: 1. No acute abdominal abnormality. 2: Intermediate density bilateral renal masses, most likely complicated cyst, although follow-up nyla l ultrasound recommended for further evaluation on nonemergent basis. 3: Nondependent gas in the right ventricle likely from recent injection. 4: Nonobstructing left renal stone. Reviewed, dictated and finalized at location A. IMPRESSION: 1. No acute abdominal abnormality. 2: Intermediate density bilateral renal masses, most likely complicated cyst, a lthough follow-up renal ultrasound recommended for further evaluation on noneme rgent basis. 3: Nondependent gas in the right ventricle likely from recent injection. 4: Nonobstructing left renal stone.
[2022-03-15 17:09] VITALS: BP 106/86; PULSE 86; RESP 18; TEMP 36.3; O2SAT 99
--- NOTE | 2022-03-15 18:44 | ED.ABDPAIN ---
HPI - Abdominal Pain General Chief Complaint: Abdominal Pain Stated Complaint: high liver enzymes, abd pain, vomiting, diarrhea Time Seen by Provider: 03/15/22 18:26 Source: patient Mode of arrival: ambulatory Limitations: no limitations History of Present Illness HPI narrative: This is a 41-year-old female that presents to the emergency department for abdominal pain. Present over the last couple of weeks. Associated with vomiting and diarrhea. Denies fever, chest pain, shortness of breath or hematochezia. Related Data Home Medications Medication Instructions Recorded Confirmed melatonin 5 mg capsule 5 mg PO DAILY 11/25/20 12/17/21 prazosin 1 mg capsule 1 mg PO QHS 12/17/21 12/17/21 Allergies Allergy/AdvReac Type Severity Reaction Status Date / Time acetaminophen [From Percocet] Allergy Severe Hives Verified 12/21/21 10:47 oxycodone [From Percocet] Allergy Severe Hives Verified 12/21/21 10:47 codeine AdvReac Mild Nausea Verified 12/21/21 10:47 Review of Systems Review of Systems: CONSTITUTIONAL: Denies fever CARDIOVASCULAR: Denies chest pain RESPIRATORY: Denies dyspnea. GASTROINTESTINAL: Reports abdominal pain, nausea, vomiting, and diarrhea. GENITOURINARY: Denies dysuria All systems reviewed & are unremarkable except as noted in HPI and below PMFSH Past Medical History Medical History Adenomatous colon polyp Allergies Anxiety Hamm esophagus Hamm's esophagus with esophagitis Blood in stool Cervical cancer Depression Encounter for Routine Gynecological Examination Gastroparesis GERD (gastroesophageal reflux disease) Headache, migraine Heart attack Heart attack Hiatal hernia History of blood clots History of miscarriage Nausea and vomiting in adult PTSD (post-traumatic stress disorder) Surgical History Surgical History Fibroid, uterine 2017 H/O heart artery stent 03/08/2020 H/O laparoscopy H/O tubal ligation 2005 History of appendectomy age 10 History of cholecystectomy age 29 History of colonoscopy History of esophagogastroduodenoscopy (EGD) Hx of anterior cruciate ligament surgery 03/2018 Hx of foot surgery 2 screws and ligament left foot 07/2019 Malignant tumor of uterus 2017 Status post balloon dilatation of esophageal stricture 9years old Family History Family History Father Carcinoma of colon Hypertension Depression Anxiety Mother Asthma Breast cancer Anxiety Depression Heart disease Cerebrovascular accident Sibling Asthma Anxiety Depression Unknown Cancer Son Asthma Anxiety Depression Heart disease Grandparent Heart disease Cerebrovascular accident Breast cancer Grandparent Diabetes mellitus Heart disease Cerebrovascular accident Social History Social History Smoking packs per day: 0.5 Smoking cigarettes per day: 10.0 Years smoked: 20 Smoking pack-years: 10.00 Smoking status: Current every day smoker Tobacco type: cigarettes Smoking end date: 03/09/20 Alcohol intake: never Alcohol use details: social Substance use: current Substance use type: marijuana Other substance usage details: PRESCRIPTION Gender identity (if verbalized by the patient): Female Spiritual care concerns: No Agree to blood products: Yes Exam Narrative: GENERAL: Well-appearing, well-nourished, and in no acute distress. HEAD: Normocephalic, atraumatic. EYES: EOMI. CHEST: Clear to auscultation. No respiratory distress. No wheezes rales or rhonchi HEART: Regular rate and rhythm. No murmur heard. Normal peripheral pulses. ABDOMEN: Soft, nondistended, normal active bowel sounds. Mild tenderness to palpation throughout the abdomen, without guarding. No CVA tenderness EXTREMITIES: Normal range of motion. No andree
[2022-03-15 18:47] LABS: Basophils Absolute Auto 0.1 K/mm3 (0.0-0.1); Basophils Percent Auto 0.7 % (0.2-1.2); Eosinophils Absolute Auto 0.2 K/mm3 (0-0.3); Eosinophils Percent Auto 1.9 % (0-4.4); Hematocrit 47.3 % (37.0-47.0); Immature Granulocyte Absolute 0.02 K/mm3 (0.00-0.031); Immature Granulocyte Percent A 0.2 % (0-0.5); Lymphocytes Absolute Auto 3.25 K/mm3 (0.9-3.2); Lymphocytes Percent Auto 40.1 % (18.3-44.2); Mean Corpuscular HGB Conc 35.9 g/dl (32-36); Mean Corpuscular Hemoglobin 31.6 pg (26-34); Mean Corpuscular Volume 87.9 fl (80-100); Mean Platelet Volume 11.5 fl (7.4-10.4); Monocytes Absolute Auto 0.5 K/mm3 (0.1-0.6); Monocytes Percent Auto 5.8 % (2.6-8.5); Neutrophils Absolute Auto 4.2 K/mm3 (1.3-6.7); Neutrophils Percent Auto 51.3 % (45.5-73.1); Platelet Count Result 236 k/mm3 (150-375); Red Blood Count 5.38 M/mm3 (4.2-5.4); Red Cell Distribution Width 13.3 % (11.5-14.5); White Blood Count 8.1 K/mm3 (4.5-10.0)
[2022-03-15 19:08] LABS: Alanine Aminotransferase 32 U/L (6-35); Albumin Level 3.9 g/dL (3.5-5.1); Alkaline Phosphatase 114 U/L (38-126); Anion Gap 8 mmol/L (8-16); Aspartate Amino Transferase 23 U/L (14-36); Bilirubin,Total 0.4 mg/dL (0.2-1.3); Blood Urea Nitrogen 6 mg/dL (7-17); Calcium 9.1 mg/dL (8.4-10.2); Carbon Dioxide 22 mmol/L (22-30); Chloride 106 mmol/L (98-107); Estimated CRCL calculation 87 ml/min; Estimated Glomerular Filt Rate > 60; Glucose 135 mg/dL (65-110); Lipase 99 U/L (23-300); Potassium 3.7 mmol/L (3.4-5.0); Sodium 136 mmol/L (137-145)
[2022-03-15 19:23] LABS: Appearance Urine Clear (Clear); Bilirubin Urine 1+ (Negative); Blood Urine Negative (Negative); Color Urine Yellow (Yellow); Glucose Urine UA Negative (Negative); Ketones Urine Negative (Negative); Leukocyte Esterase Ur Negative LEU/UL (Negative); Nitrate Urine Negative (Negative); Protein Urine Negative (Negative); Specific Grav Ur 1.025 (1.001-1.035); Urobilinogen Urine 0.2 mg/dL (<2.0); pH Urine 5.5 (5.0-9.0)
[2022-03-15 19:37] LABS: Add Urine Microscopic? YES; Mucus Urine Few /lpf; RBC Urine 0-2 /hpf (0-2); Squamous Epithelial Cell Urine Occasional /hpf (Few); WBC Urine 0-3 /hpf
[2022-03-15] MEDS: SODIUM CHLORIDE 0.9% IV 1,000 ML 999 ML IV CONT ×2 (19:46→22:33)
[2022-03-15] MEDS: ONDANSETRON INJ 4 MG/2 ML VIAL IV PUSH (19:47)
[2022-03-15] MEDS: PANTOPRAZOLE SODIUM IV 40 MG VIAL IV PUSH (19:48)
[2022-03-15 19:49] LABS: Influenza A QL RT-PCR Negative (Negative); Influenza B QL RT-PCR Negative (Negative); SARS-CoV-2 RNA PCR Negative
[2022-03-15] MEDS: KETOROLAC 15 MG/ML VIAL (*BKC) IV PUSH (21:37)
[2022-03-15] MEDS: DICYCLOMINE HCL INJ 20 MG/2 ML VIAL IM (22:32)
[2022-03-15 23:23] VITALS: BP 107/74; PULSE 70; RESP 18; O2SAT 98
== END 2022-03-15 23:21 | disposition home or self-care (01) ==
PROVIDERS: Physician Assistant; Emergency Provider Emergency Medicine
DX: N28.1 Cyst of kidney, acquired (principal); R10.84 Generalized abdominal pain; Z20.822 Contact with and (suspected) exposure to COVID-19; K22.70 Barrett's esophagus without dysplasia; K20.90 Esophagitis, unspecified without bleeding; K21.9 Gastro-esophageal reflux disease without esophagitis; K31.84 Gastroparesis; I25.2 Old myocardial infarction; Z85.038 Personal history of other malignant neoplasm of large intestine; Z86.010 Personal history of colon polyps; Z95.5 Presence of coronary angioplasty implant and graft; Z87.891 Personal history of nicotine dependence; F43.10 Post-traumatic stress disorder, unspecified; F41.9 Anxiety disorder, unspecified; F32.A Depression, unspecified; N20.0 Calculus of kidney
CPT/HCPCS: 36415; 74177; 80053; 81001; 81025; 83690; 85025; 87502; 96361; 96372; 96374; 96375; 99284; C9113; C9803; J0500; J1885; J2405; J7030; Q9967; U0003; U0005

== ENCOUNTER 2025-08-30 12:45 | Observation (INO) | payer OTHER, SELFPAY ==
[2025-08-30] VITALS (13 sets, daily range): BP systolic 109–159; BP diastolic 60–98; PULSE 48–84; RESP 16–20; TEMP 36.2–36.4; O2SAT 96–100; BMI 39.6
--- NOTE | ~2025-08-30 | XR_ITS ---
EXAMINATION: XR chest 1V portable 08/30/2025 13:54 INDICATION: Chest pain and shortness of breath PROCEDURE: AP portable chest COMPARISON: No prior studies for comparison. FINDINGS: The lungs are clear. The cardiomediastinal silhouette is within normal limits. There are no pleural effusions. There is no pneumothorax suspected. IMPRESSION: 1: NO ACUTE CARDIOPULMONARY DISEASE. Reviewed, dictated and finalized at location O. ETING PRODUCER
--- NOTE | ~2025-08-30 | CT_ITS ---
EXAMINATION: CTA chest PE protocol DATE: 08/30/2025 15:25 AIRFRAME AND POWER PLANT MECHANIC INDICATION: Chest pain for one month. TECHNIQUE: Computed tomographic angiography (CTA) of the chest was performed with 100 mL Omnipaque-350 intravenous contrast. The dose-length product was 974.35 mGy-cm. Maximum intensity projection 3D-reconstructions of the aorta and other arteries were constructed by the technologist on a separate workstation. Automated exposure control and iterative reconstruction technique were employed. COMPARISON: None. FINDINGS: Study technically adequate without evidence for pulmonary embolism. Small hiatal hernia. Heart size normal. No thoracic lymphadenopathy. No significant pleural or pericardial effusion. Nonobstructing left nephrolithiasis. There is cortical scarring of the left kidney. Calcified granuloma left lower lobe. Mild thoracic spondylosis. No focal airspace consolidation. No focal pneumonia. No suspicious pulmonary nodules or masses. IMPRESSION: 1. No acute cardiopulmonary disease. 2: Small hiatal hernia. 3: Nonobstructing left nephrolithiasis with left renal cortical scarring. Reviewed, dictated and finalized at location O. RAME AND POWER PLANT MECHANIC
--- OUTSIDE RECORDS SUMMARY | 2025-08-30 12:53 | XMS_ITS | Clinical Summary ---
Author Organization [facility] Address [address] [place] [address] Care Team Providers Care Skilled Nursing Professional Name Role Phone Ruma Gabriel MD Primary Care Provider [phone] Allergies Active Allergy Reactions Criticality Noted Date Comments Codeine Nausea Only 06/09/2020 Medications albuterol sulfate HFA 108 (90 Base) MCG/ACT inhaler Inhale 2 puffs into the lungs every 6 (six) hours as needed for Shortness of breath or Wheezing. 1 Active melatonin 10 MG tablet Take 1 tablet (10 mg total) by mouth nightly as needed. Active ondansetron (ZOFRAN) 4 MG tablet Take 1 tablet (4 mg total) by mouth every 8 (eight) hours as needed. 20 tablet 4 Active topiramate (TOPAMAX) 25 MG tablet Take 2 tablets (50 mg total) by mouth daily. 60 tablet 1 4 Active HYDROcodone-herberth taminophen (NORCO) 5-325 MG tabletIndicatio ns:Acute Pain < 3 Day Supply Take 1 tablet by mouth every 4 (four) hours as needed. Indications: Acute Pain < 3 Day Supply 10 tablet 4 Active magnesium oxide (MAG-OX) 400 (240 Mg) MG tablet Take 1 tablet (400 mg total) by mouth daily. 30 tablet 4 Active omeprazole (PRILOSEC) 20 MG capsule Take 1 capsule (20 mg total) by mouth daily. Active warfarin (COUMADIN) 4 MG tablet Take 1 tablet (4 mg total) by mouth daily. 30 tablet 4 Active Active Problems Problem Noted Date Diagnosed Date Critical limb ischemia of right lower extremity 08/08/2024 Nausea & vomiting 07/23/2024 Immunizations Immunization Administration Dates Next Due Fluzone (IIV3, Trivalent, 0. 5 ML Prefilled Syringe) 07/25/2024(Deferred: Patient/family declined),07/24/2024(Deferred: - Declines vaccine whil she's feeling ill) Family History Medical History Relation Comments Cancer Brother Heart Disease Father Breast Cancer Maternal Grandmother Breast Cancer Mother Cancer Mother Heart Disease Mother Relation Status Comments Brother Father Maternal Grandmother Mother Social History Tobacco Use Types Packs/Day Years Used Date Smoking Tobacco: Former Cigarettes Q uit: 03/08/2020 Smokeless Tobacco: Never Tobacco Cessation:Counseling Given: Not Answered Alcohol Use Standard Drinks/Week Comments Never 0 (1 standard drink = 0.6 oz pur e alcohol) B1300 Health Literacy Answer Date Recor ded How often do you need to hav e someone help you when you read instructions, pamphlets, or other written material from your doctor or pharmacy? Never 07/23/2024 [employer] Answer Date Recorded In the past 12 months has e [employer], [employer], or water [employer] threatened to shut off services in your home? Yes 08/08/2024 Humiliation, Afraid, Rape, and Kick questionnair e Answer Date Recorded Within the last year, have y ou been afraid of your partner or ex-partner? No 08/08/2024 Within the last year, have y ou been humiliated or emotionally abused in other ways by your partner or ex-partner? No Within the last year, have y ou been kicked, hit, slapped, or otherwise physically hurt by your partner or ex-partner? No 08/08/2024 Within the last year, have y ou been raped or forced to have any kind of sexual activity by your partner or ex-partner? No 08/08/2024 Social Connection and Isolation Panel Answer Date Recorded In a typical week, how many times do you talk on the phone with family, friends, or neighbors? Three times a week 07/23/2024 How often do you get togethe r with friends or relatives? Three times a week 07/23/2024 How often do you attend [facility] or yazdanism services? Never 07/23/2024 Do you belong to any clubs o r organizations such as religious groups, unions, fraternal or athletic groups, or school groups? No 07/23/2024 How often do you attend meet ings of the clubs or organizations you belong to? Never 07/23/2024 Are you , , di vorced, , never , or living with a partner? 07/23/2024 AUDIT-C Answer Date Recorded Q1: How often do you have a drink containing alcohol? Never 07/23/2024 Q2: How many drinks containi ng alcohol do you have on a typical day when you are drinking? Patient does not drink Q3: How often do you have si x or more drinks on one occasion? Never 07/23/2024 Overall Financial Resource Strain (CARDIA) Answe r Date Recorded How hard is it for you to pa y for the very basics like food, housing, medical care, and heating? Very hard 08/08/2024 [facility] - Occupational Stress Questionnaire Answer Date Recorded Do you feel stress - tense, restless, nervous, or anxious, or unable to sleep at night because your mind is troubled all the time - these days? Rather much 07/23/2024 Exercise Vital Sign Answer Date Recorde d On average, how many days pe r week do you engage in moderate to strenuous exercise (like a brisk walk)? 4 days 07/23/2024 On average, how many minutes do you engage in exercise at this level? 30 min 07/23/2024 Hunger Vital Sign Answer Date Recorded Within the past 12 months, y ou worried that your food would run out before you got the money to buy more. Often true Within the past 12 months, t he food you bought just didn't last and you didn't have money to get more. Sometimes true 12/2023 PRAPARE - Transportation Answer Date Re corded In the past 12 months, has l ack of transportation kept you from medical appointments or from getting medications? No 12/2023 In the past 12 months, has l ack of transportation kept you from meetings, work, or from getting things needed for daily living? No 08/08/2024 Housing Stability Vital Sign Answer Peewee e Recorded In the last 12 months, was t here a time when you were not able to pay the mortgage or rent on time? Yes 08/08/2024 In the past 12 months, how m any times have you moved where you were living? 0 08/08/2024 At any time in the past 12 m [facility], were you homeless or living in a senior care (including now)? No 08/08/2024 Comments No Sex and Gender Information Value Date Recorded Sex Assigned at Not on file Legal Sex Female 10:35 PM CDT Gender Identity Not on file Sexual Orientation Not on file Last Filed Vital Signs Vital Sign Reading Time Taken Comments Blood Pressure 115/79 08/30/2024 3:15 PM CONSUMER MARKETING ANALYST Pulse 90 08/30/2024 3:15 PM CONSUMER MARKETING ANALYST Temperature 36.2 C (97.1 F) 08/30/2024 12:57 PM CONSUMER MARKETING ANALYST Respiratory Rate 17 08/30/2024 3:15 PM CONSUMER MARKETING ANALYST Oxygen Saturation 99% 08/30/2024 3:15 PM CONSUMER MARKETING ANALYST Inhaled Oxygen Concentration - - Weight 80.3 kg (177 lb) 08/30/2024 12:57 PM CONSUMER MARKETING ANALYST Height 162.6 cm (5' 4) 08/30/2024 12:57 PM CONSUMER MARKETING ANALYST Body Mass Index 30.38 08/30/2024 12:57 PM CONSUMER MARKETING ANALYST Plan of Treatment Health Maintenance Due Date Last Done Comments ASCVD Statin 1979 Cervical Cancer Screening Pa p Smear (Age 30 to 64) Every 3 Years 1979 Colorectal Cancer Screening Colonoscopy (10 Years) 1979 Annual Physical 1982 DTaP, Tdap and Td Vaccines ( 1 - Tdap) 1998 Hepatitis B Vaccines (1 of 3 - 19+ 3-dose series) 1998 HPV Vaccines (1 - 3-dose SCD M series) 2006 Cervical Cancer Screening Pa p with HPV Testing (Age 30 to 64) Every 5 Years 2009 Cervical Cancer Screening wi th HPV 2009 ASCVD LDL 03/24/2022 03/24/2021, 09/09/2020 Mammogram Screening 10/07/2022 10/07/2020 COVID-19 Vaccine (3 - 2024-2 6 season) 2025 02/19/2021, 01/29/2021 Influenza Adult (#1) 2025 Hepatitis C Completed 09/23/2020 Hepatitis A Vaccines Aged Out No long er eligible based on patient's age to complete this topic Meningococcal B Vaccine Aged Out No l onger eligible based on patient's age to complete this topic Meningococcal Vaccine Aged Out No lakeshia peggy eligible based on patient's age to complete this topic Pneumococcal Vaccine: Pediatrics (0 to 5 Years) and At-Risk Patients (6 to 49 Years) Aged Out No longer eligible b ased on patient's age to complete this topic RSV Immunizations Under 20 Months Aged Out No longer eligible b ased on patient's age to complete this topic Procedures Procedure Name Priority Date/Time Associated Diagnosis Comments LIPID PANEL Routine 03/24/2021 4:10 PM CDT Paresthesia of skin Anemia, unspecified Palpitations Hyperglycemia Old myocardial infarction MG SCREENING W MANOLO YUDI DIGI Routine 10/07/2020 12:48 PM CONSUMER MARKETING ANALYST Visit for screening mammogram HEPATITIS C ANTIBODY Routine 09/23/2020 4:11 PM CONSUMER MARKETING ANALYST Screening examination for venereal disease from Last 3 Months or Most Recently Relevant to Health Maintenance Results * (ABNORMAL) LIPID PANEL (03/24/2021 4:10 PM CDT) CHOLESTEROL 170 <200.0 MG/DL 03/24/2021 5:25 PM CDT [facility] TRIGLYCERIDES 248(H) <150 MG/DL 03/24/2021 5:25 PM CDT [facility] HDL 39(L) >40.0 MG/DL 03/24/2021 5:25 PM CDT [facility] LDL (CALCULATED) 81 <100 MG/DL 03/24/2021 5:25 PM CDT [facility] NON HDL CHOLESTEROL 131(H) <130 MG/DL 03/24/2021 5:25 PM CDT [facility] CHOL/HDL RATIO 4.4 0.0 - 4.5 03/24/2021 5:25 PM CDT [facility] VLDL CALCULATION 50 5 - 55 MG/DL 03/24/2021 5:25 PM CDT [facility] LIPID INTERPRETATION 03/24/2021 5:25 PM CDT [facility] Comment: [facility] CONCENSUS REPORT RECOMMENDATIONS: ADULT CHILD LOW RISK: CHOLESTEROL <200 <170 TRIGLYCERIDE <150 --- HDL >=60 --- LDL <100 <110 BORDERLINE: CHOLESTEROL 200-239 170-199 TRIGLYCERIDE 150-199 --- HDL 40-59 --- LDL 100-159 110-129 HIGH RISK: CHOLESTEROL >=240 >=200 TRIGLYCERIDE >=200 --- HDL <40 --- LDL >=160 >=130 03/24/2021 4:10 PM CDT us Zenobia Reed DO LABORATORY Final Resul t [facility] [address] [place] [address], [place] [phone] * MG SCREENING W MANOLO YUDI DIGI (10/07/2020 12:48 PM CONSUMER MARKETING ANALYST) Anatomical Region Laterality Modality Breast Bilateral Mammography 10/07/2020 3:18 PM CONSUMER MARKETING ANALYST Narrative 10/07/2020 3:19 PM CONSUMER MARKETING ANALYST EXAMINATION: MG SCREENING W MANOLO YUDI DIGI WITH TOMOSYNTHESIS AND COMPUTER-AIDED DETECTION (CAD) DATE: 10/07/2020 12:14 PM COMPARISON STUDIES: No previous available.. CLINICAL HISTORY: Visit for screening mammogram . Baseline exam. FINDINGS: Bilateral CC, MLO, 2-D and 3-D acquisitions. Scattered residual fibroglandular parenchyma . . No evidence of dominant mass, architectural distortion, skin thickening, nipple retraction or suspicious clusters of microcalcifications. Benign appearing calcifications noted. CONCLUSION: 1. BI-RADS Category 2 - benign findings. Annual screening mammography recommended. 2. TISSUE TYPE: Category B - There are areas of scattered fibroglandular density. MQSA BI-RADS Categories: Category 0 - needs additional imaging evaluation. Category 1 - negative. Category 2 - benign findings. Category 3 - probably benign findings, but short interval follow-up is recommended. Category 4 - suspicious abnormality and biopsy should be considered though the lesion may well be benign. Category 5 - highly suggestive of malignancy and appropriate action should be taken. A) A negative report should not delay a biopsy if a dominant or clinically suspicious mass is present. B) Adenosis and dense breasts may obscure an underlying neoplasm. C) Study interpreted with computer aided detection. Voice recognition software utilized. Interpreted By: Jaycob Galloway, 10/07/2020 3:18 PM Aurora Maciel MD MAMMO Final Result * HEPATITIS C ANTIBODY (09/23/2020 4:11 PM CONSUMER MARKETING ANALYST) HEPATITIS C AB NON-REACTI VE NON-REACTI VE 09/24/2020 10:45 AM CONSUMER MARKETING ANALYST [facility] 09/23/2020 4:11 PM CONSUMER MARKETING ANALYST Aurora Maciel MD LABORATORY Final Result [facility] [address] [place] [address], [place] [phone] from Last 3 Months or Most Recently Relevant to [place] [id number] Advance Directives * Full Code (Latest Code Status on File) Date Activated Date Inactivated Comments 08/08/2024 5:15 AM 08/15/2024 2:00 PM * Full Code Date Activated Date Inactivated Comments 07/23/2024 7:34 PM 07/25/2024 1:35 PM Care Teams Skilled Nursing Professional Relationship Specialty Start Date End Date Ruma Gabriel MD [address] [place] [address] [id number] PCP - General FAMILY PRACTICE 01/04/24
--- OUTSIDE RECORDS SUMMARY | 2025-08-30 12:53 | XMS_ITS | Encounter Summary ---
Author Organization [facility] Address [address] [place] [address] Care Team Providers Care High Wire Artist Name Role Phone Ruma Gabriel MD Primary Care Provider [phone] Encounter Details Date Type Department Care Team (Late st Contact Info) Description 08/16/2024 Hospital Follow-up Call [facility] Cardiovascular Care Unit [address] [place] [address] Kristi Gaitan RN Social History Tobacco Use Types Packs/Day Years Used Date Smoking Tobacco: Former Cigarettes Q uit: 03/08/2020 Smokeless Tobacco: Never Alcohol Use Standard Drinks/Week Comments Never 0 (1 standard drink = 0.6 oz pur e alcohol) B1300 Health Literacy Answer Date Recor ded How often do you need to hav e someone help you when you read instructions, pamphlets, or other written material from your doctor or pharmacy? Never 07/23/2024 [facility] Utilities Answer Date Recorded In the past 12 months has e [employer], gas, oil, or water [employer] threatened to shut off services in your [...] week 07/23/2024 How often do you attend chur or islam services? Never 07/23/2024 Do you belong to any clubs o r organizations such as cheondoism groups, unions, fraternal or athletic groups, or [...] medical care, and heating? Very hard 08/08/2024 [facility] - Occupational Stress Questionnaire Answer Date Recorded [...] any time in the past 12 m [facility], were you homeless or living in a fpc (including now)? No 08/08/2024 Comments No Sex and Gender Information Value Date Recorded Sex Assigned at Not on file Legal Sex Female 10:35 PM CDT Gender Identity Not on file Sexual Orientation Not on file documented as of this encounter Functional Status * Are you deaf or do you have serious difficulty hearing Answer Date of Assessment Author Status No 08/08/2024 1:08 PM Elda Reyes LPN Active * Are you blind or do you have serious difficulty seeing, even when wearing glasses? Answer Date of Assessment Author Status No 08/08/2024 1:08 PM Elda Reyes LPN Active * Do you have serious difficulty walking or climbing stairs? Answer Date of Assessment Author Status No 08/08/2024 1:08 PM Elda Reyes LPN Active * Do you have difficulty dressing or bathing? Answer Date of Assessment Author Status No 08/08/2024 1:08 PM Elda Reyes LPN Active * Because of a physical, mental, or emotional condition, do you have difficulty doing errands alone such as visiting a doctor's office or shopping? Answer Date of Assessment Author Status No 08/08/2024 1:08 PM Elda Reyes LPN Active documented as of this encounter Mental Status * Because of a physical, mental, or emotional condition, do you have serious difficulty concentrating, remembering, or making decisions? Answer Entry Date Author Status No 08/08/2024 1:08 PM CERTIFIED COMPOSITES TECHNICIAN Elda Weller LPN Active documented in this encounter Plan of Treatment Not on file documented as of this encounter Visit Diagnoses Not on filedocumented in this encounter Care Teams High Wire Artist Relationship Specialty Start Date End Date Ruma Gabriel MD [address] [place] [address] Dr Sands [address] [place] [id number] PCP - General FAMILY PRACTICE 01/04/24 documented as of this encounter
--- NOTE | 2025-08-30 12:58 | PC.NURSE ---
UPON ENTERING ROOM FOR NURSING ASSESSMENT, PT LAYING ON LEFT SIDE ON COT WITH WARM BLANKET ON. MALE IN ROOM IS FANNING PT WITH KLEENEX BOX. MALE STATES PT IS REALLY HOT, I STATED WE NEED TO TAKE THE BLANKET OFF. PT JUMPED UP ON COT, IM NOT DEALING WITH THIS, DONT TELL ME WHAT TO DO, GET SOMEBODY ELSE. MALE STATES TO PT TO CALM DOWN. PT STATES DUDE IM NOT DEALING WITH HER. 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
--- NOTE | 2025-08-30 13:00 | ED.URI ---
HPI - URI/Sore Throat General Chief Complaint: Upper Respiratory Infection Stated Complaint: body aches and vomiting for 1 month Time Seen by Provider: 08/30/25 12:59 Source: patient and family Mode of arrival: ambulatory Limitations: no limitations History of Present Illness HPI Narrative: Patient is a 44-year-old female with intractable nausea and vomiting for the past few days. She has been generally sick for the past 30 days. Specifically the last few days she has been significantly nausea and vomiting. No abdominal pain. No chest pain. Patient has some shortness of breath and chest congestion for the past 30 days. 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 She has stopped all of her medications however for the past 30 days. This is all due to expense. Plavix was on her list however Xarelto as the drug she is taking only for blood thinning. She has associated burning of the upper chest and back and shoulders from retching. No definite chest pain. MD elicited complaint: cough Pertinent past history: other (DVT/PE multiple, coronary disease/stents last was 2023, anxiety and depression) Onset (ago): month(s) (One) Consistency: intermittent and progressively worsening Severity: moderate (Nausea and vomiting) Pain scale (0-10): 8 Description of mucous: clear and watery Able to tolerate fluids by mouth: No (Due to recurrent nausea and vomiting) Exacerbating factors: nothing Relieving factors: nothing Context: sick contacts and other (Patient has significant nausea and vomiting as well as burning in the chest upper and back and shoulders from retching; patient has been sick for the past 30 days and more so in the last 3-4 days) Associated symptoms: chills, myalgias, headache, cough, shortness of breath, nausea, vomiting, diarrhea and rash Treatments prior to arrival: cold medicine Related Data Home Medications ?Medication ?Instructions ?Recorded ?Confirmed ?Last Taken ?Type melatonin 5 mg capsule 5 mg PO DAILY 11/25/20 08/30/25 Unknown History albuterol 90 mcg/actuation aerosol 90 mcg inhalation Q6H PRN wheezing 08/30/25 08/30/25 Unknown History inhaler shortness of breath aripiprazole 10 mg tablet (Abilify) 10 mg PO DAILY 08/30/25 08/30/25 Unknown History gabapentin 100 mg capsule 100 mg PO Q12H PRN nerve pain 08/30/25 08/30/25 Unknown History hydroxyzine pamoate 25 mg capsule 25 mg PO Q8H PRN anxiety 08/30/25 08/30/25 Unknown History melatonin 10 mg capsule 10 mg PO HS 08/30/25 08/30/25 Unknown History nitroglycerin 0.4 mg sublingual 0.4 mg sublingual Q5M PRN chest 08/30/25 08/30/25 Unknown History tablet pain omeprazole 20 mg capsule,delayed 20 mg PO DAILY 08/30/25 08/30/25 Unknown History release rosuvastatin 20 mg tablet (Crestor) 20 mg PO DAILY 08/30/25 08/30/25 Unknown History topiramate 50 mg tablet 50 mg PO Q12H 08/30/25 08/30/25 Unknown History Allergies Allergy/AdvReac Type Severity Reaction Status Date / Time codeine AdvReac Mild Nausea Verified 08/30/25 19:55 Review of Systems Review of Systems: All systems reviewed & are unremarkable except as noted in HPI and below Constitutional: Constitutional: Reports no additional constitutional complaints Eyes: Eyes: Reports no additional eye complaints ENT: Reports system reviewed and no additional complaints, except as documented Cardiovascular: Cardiovascular: Reports no additional cardiovascular complaints Respiratory: Respiratory: Reports no additional respiratory complaints Gastrointestinal: Gastrointestinal: Reports no additional gastrointestinal complaints Genitourinary: Genitourinary: Reports no additional female genitourinary complaints Musculoskeletal: Musculoskeletal: Reports no additional musculoskeletal complaints Integumentary/Breasts: Skin/Breast: Reports system reviewed and no additional complaints, except as docu Neurologic: Reports system reviewed and no additional complaints, except as documented Psychiatric: Psychiatric: Reports no additional psychiatric complaints Endocrine: Endocrine: Reports no additional endocrine complaints Hematologic/Lymphatic: Hematologic/Lymphatic: Reports no additional hematologic/lymphatic complaints Allergic/Immunologic: Allergic/Immunologic: Reports no additional allergic/immunologic complaints PMFSH Past Medical History Medical History Adenomatous colon polyp Hamm's esophagus with esophagitis Nausea and vomiting in adult Gastroparesis Hiatal hernia Hamm esophagus Blood in stool Encounter for Routine Gynecological Examination History of miscarriage Heart attack PTSD (post-traumatic stress disorder) GERD (gastroesophageal reflux disease) Heart attack Cervical cancer Anxiety History of blood clots Headache, migraine Depression Allergies Surgical History Surgical History History of colonoscopy History of esophagogastroduodenoscopy (EGD) H/O laparoscopy Status post balloon dilatation of esophageal stricture 9years old Fibroid, uterine 2017 Malignant tumor of uterus 2016 H/O tubal ligation 2005 History of appendectomy age 10 History of cholecystectomy age 29 Hx of anterior cruciate ligament surgery 03/2018 Hx of foot surgery 2 screws and ligament left foot 07/2019 H/O heart artery stent 03/08/2020 Family History Family History Father Carcinoma of colon Hypertension Depression Anxiety Mother Asthma Breast cancer Anxiety Depression Heart disease Cerebrovascular accident Sibling Asthma Anxiety Depression Unknown Cancer Son Asthma Anxiety Depression Heart disease Grandparent Heart disease Cerebrovascular accident Breast cancer Grandparent Diabetes mellitus Heart disease Cerebrovascular accident Social History Social History Smoking packs per day: 0.5 Smoking cigarettes per day: 10.0 Years smoked: 20 Smoking pack-years: 10.00 Smoking status: Former smoker Tobacco type: cigarettes Smoking end date: 03/09/20 Alcohol intake: never Alcohol use details: social Substance use: current Substance use type: marijuana Other substance usage details: Medical Marijuana Last use: 08/29/2025 Lack of Transportation: No Lack of Food: Sometimes True Current Housing: I Have Housing Concerned About Future Housing: No Difficulty Paying Gas/Electric Bills: No Difficulty Paying for Meds: YES Currently Unemployed: No Education: Decline to Answer Difficulty w/ Childcare or Family Care: No Living arrangements: with family Occupation/Education: unemployed Gender identity (if verbalized by the patient): Female Spiritual care concerns: No Agree to blood products: Yes Exam Const: General: ill appearing Nutritional Appearance: well nourished Orientation/consciousness: patient oriented x3 Limitations: no limitations HENMT: Head: normal to inspection Ears: external ears normal Face/Nose/Sinus: Normal external nose present Eyes: Conjunctivae: conjunctivae normal Pupils: Equal, round and reactive pupils present EOM: EOMs intact bilaterally Neck: Neck: normal visual inspection, no lymphadenopathy and no meningeal signs Chest: Chest palpation & inspection: normal inspection of the chest and abnormal inspection of the chest Resp: Effort & Inspection: normal respiratory effort, not labored, no retractions, tachypneic and no use of accessory muscles Auscultation: clear to auscultation bilaterally, no crackles, no rales, no rhonchi, no wheezes, breath sounds absent and lung sounds not diminished Cardio: Rate: regular rate Rhythm: regular rhythm Heart sounds: no murmurs GI: Inspection: non-distended GI Palp: Yes Soft to palpation and No Tenderness to palpation present (GI) Auscultation: normal bowel sounds : General: Yes bladder normal to palpation Back/Spine/Pelvis: Back: no CVA tenderness Skin: General skin exam: normal color Rashes: no rashes Wounds: no wounds Neuro: General: patient oriented x3, moves all extremities and no meningeal signs Extrem: General: normal to inspection, no clubbing, cyanosis or edema and no pedal edema Psych: Mental Status: mental status grossly normal Affect: Anxious affect present Attitude: cooperative Course Vital Signs Vital signs: Vital Signs Temperature 36.4 C 08/30/25 12:45 Pulse Rate 61 08/30/25 12:45 Respiratory Rate 16 08/30/25 12:45 Blood Pressure 133/92 H 08/30/25 12:45 Pulse Oximetry 99 08/30/25 12:45 Oxygen Delivery Room Air 08/30/25 12:45 Temperature 36.6 C 08/31/25 00:00 Pulse Rate 63 08/31/25 00:00 Respiratory Rate 15 08/31/25 00:00 Blood Pressure 120/65 08/31/25 00:00 Pulse Oximetry 99 08/31/25 00:00 Oxygen Delivery Room Air 08/31/25 00:00 [facility] Narrative Medical decision making narrative: Patient is a 44-year-old female with intractable nausea vomiting and other miscellaneous complaints. Labs. Chest x-ray/CTA chest. COVID panel. We will admit the patient for further nausea vomiting intractable treatment. Further workup to be done on the hospital floor with the hospitalist. Differential Diagnosis Differential Diagnosis: Atypical chest pain, chest pain/angina, pancreatitis Lab Data [facility] Lab Attestation statement: I personally reviewed the patient's lab results. 08/30/25 13:42 08/30/25 13:42 Labs: Lab Results 08/30/25 08/30/25 Range/Units 13:42 13:44 WBC 10.1 (4.8-10.8) K/mm3 RBC 5.51 H (4.20-5.40) M/mm3 Hgb 14.1 (12.0-15.0) g/dL Hct 44.6 (35.0-49.0) % MCV 80.9 (78.0-102.0) fL MCH 25.6 L (27.0-31.0) pg MCHC 31.6 L (32-36) g/dL RDW 16.5 H (11.6-14.4) % Plt Count 335 (150-420) K/mm3 MPV 11.3 (9.2-11.8) fl Immature Gran % (Auto) 0.3 H (0.0-0.0) % Neut % (Auto) 60.2 (50.0-70.0) % Lymph % (Auto) 31.1 (18.0-42.0) % [place] % (Auto) 5.3 (2.0-11.0) % Eos % (Auto) 2.2 (1.0-6.0) % Baso % (Auto) 0.9 (0.0-1.0) % Lymph # (Auto) 3.13 (1.10-4.50) K/mm3 [place] # (Auto) 0.53 (0.10-0.90) K/mm3 Eos # (Auto) 0.22 (0.02-0.50) K/mm3 Baso # (Auto) 0.09 (0.00-0.10) K/mm3 Abs Immat Gran (auto) 0.03 H (0.00-0.00) K/mm3 Absolute Neuts (auto) 6.07 (1.70-7.20) K/mm3 Absolute Nucleated RBC 0.00 (0.00-0.00) K/mm3 Nucleated RBC % 0.0 (0-0.0) % PT 10.6 (9.50-12.1) Seconds INR 1.0 APTT 25.4 (23.9-30.70) Sec Sodium 139 (137-145) mmol/L Potassium 4.1 (3.4-5.0) mmol/L Chloride 110 H (98-107) mmol/L Carbon Dioxide 15 L (22-30) mmol/L Anion Gap 14 H (4-12) mmol/L BUN 13 D (7-17) mg/dL Creatinine 1.05 H (0.7-1.0) mg/dL Estim Creat Clear Calc 72 ml/min Estimated GFR 57 L (59 - ) Glucose 166 H (65-110) mg/dL Calculated Osmolality 292 (285-295) mOsm/kg Lactic Acid 3.2 H (0.7-2.0) mmol/L Calcium 10.2 (8.4-10.2) mg/dL Total Bilirubin 0.5 (0.2-1.3) mg/dL AST 86 H (14-36) U/L ALT 80 H (6-35) U/L Alkaline Phosphatase 145 H (38-126) U/L Total Creatine Kinase 110 (30-135) U/L Troponin I < 0.012 (0.000-0.034) ng/mL NT-Pro-B Natriuret Pep 104 H (19.9-100) pg/mL Total Protein 7.6 (6.3-8.2) g/dL Albumin 4.6 (3.5-5.1) g/dL Urine Color Yellow (Yellow) Urine Appearance Clear (Clear) Urine pH 5.5 (5.0-8.0) Ur Specific [place] >= 1.030 H (1.010-1.020) Urine Protein 1+ H (Negative) Urine Glucose (UA) Negative (Negative) Urine Ketones Negative (Negative) Ur Blood (Man) 1+ H (Negative) Urine Nitrate Negative (Negative) Urine Bilirubin 1+ H (Negative) Urine Urobilinogen 1.0 (0.2-1.0) mg/dL Leukocyte Esterase Rfl Trace H (Negative) JERONIMO/UL Urine RBC 0-2 (0-2) /hpf Urine WBC 10-15 H (0-3) /hpf Ur Squamous Epith Cells Many H (Few) /hpf Influenza A (RT-PCR) Negative (Negative) Influenza B (RT-PCR) Negative (Negative) RSV (RT-PCR) Negative (Negative) SARS-CoV-2 RNA (RT-PCR) Negative (Negative) Imaging Data Attestation: I personally reviewed and interpreted this imaging study as follows: Radiologist's impression: ITS Impressions Chest X-Ray 08/30/25 13:54 IMPRESSION: 1: NO ACUTE CARDIOPULMONARY DISEASE. Chest CTA 08/30/25 15:25 IMPRESSION: 1. No acute cardiopulmonary disease. 2: Small hiatal hernia. 3: Nonobstructing left nephrolithiasis with left renal cortical scarring. CTA of the chest took pictures into the abdomen upper area and there is no acute findings in the abdomen to correlate with her nausea and vomiting; patient did not have abdominal pain ECG Data EKG #1: Attestation: I personally reviewed and interpreted this ECG as follows: ECG completion date: 08/31/25 ECG completion time: 03:26 bradycardia, sinus rhythm, no ectopy, non-specific ST changes, normal QRS, normal QT and NL axis Discharge Plan Discharge Clinical Impression: Intractable nausea and vomiting, Viral syndrome, Acute bacterial bronchitis, High anion gap metabolic acidosis UTI (urinary tract infection) Qualifiers: Urinary tract infection type: site unspecified Hematuria presence: without hematuria Qualified Code(s): N39.0 - Urinary tract infection, site not specified Patient Disposition: Acute Care Hospital [facility] Condition: Stable Time of Disposition: 17:27
--- NOTE | 2025-08-30 13:09 | PC.NURSE ---
DR SANTOS IN WITH PT
--- NOTE | 2025-08-30 13:13 | ECG_ITS ---
Test Date: 2025-08-30 13:27:38 Measurements Intervals [place] Rate: 48 P: 57 PA: 122 QRS: 60 QRSD: 86 T: 70 QT: 437 QTc: 393 Interpretive Statements SINUS BRADYCARDIA WITH SINUS ARRHYTHMIA MINIMAL Q WAVES- ANTEROLAT/INF LEADS BASELINE ARTIFACT- I, III, AVL ABNORMAL ECG No previous ECG available for comparison Electronically Signed On 08-30-2025 20:08:34 PEST TECHNICIAN by Edwardo Vazquez D.O.
[2025-08-30] MEDS: ONDANSETRON INJ 4 MG/2 ML VIAL IV PUSH ×3 (13:47→23:41)
[2025-08-30 13:52] LABS: Add Urine Microscopic? YES; Appearance Urine Clear (Clear); Glucose Urine UA Negative (Negative); Leukocyte Esterase Ur Trace LEU/UL (Negative); Nitrate Urine Negative (Negative); Specific Grav Ur >= 1.030 (1.010-1.020)
[2025-08-30 13:52] LABS: Hematocrit 44.6 % (35.0-49.0); Hemoglobin 14.1 g/dL (12.0-15.0); Immature Granulocyte Percent A 0.3 % (0.0-0.0); Lymphocytes Absolute Auto 3.13 K/mm3 (1.10-4.50); Mean Corpuscular HGB Conc 31.6 g/dL (32-36); Mean Corpuscular Hemoglobin 25.6 pg (27.0-31.0); Mean Corpuscular Volume 80.9 fL (78.0-102.0); Nucleated Red Blood Cells Absolute Auto 0.00 K/mm3 (0.00-0.00); Nucleated Red Blood Cells Perc 0.0 % (0-0.0); Platelet Count Result 335 K/mm3 (150-420); Red Blood Count 5.51 M/mm3 (4.20-5.40); White Blood Count 10.1 K/mm3 (4.8-10.8)
[2025-08-30 14:04] LABS: Alanine Aminotransferase 80 U/L (6-35); Albumin Level 4.6 g/dL (3.5-5.1); Alkaline Phosphatase 145 U/L (38-126); Anion Gap 14 mmol/L (4-12); Aspartate Amino Transferase 86 U/L (14-36); Bilirubin,Total 0.5 mg/dL (0.2-1.3); Blood Urea Nitrogen 13 mg/dL (7-17); Calcium 10.2 mg/dL (8.4-10.2); Carbon Dioxide 15 mmol/L (22-30); Chloride 110 mmol/L (98-107); Creatine Kinase 110 U/L (30-135); Estimated CRCL calculation 72 ml/min; Estimated Glomerular Filt Rate 57; Glucose 166 mg/dL (65-110); Osmolality Calculated 292 mOsm/kg (285-295); Potassium 4.1 mmol/L (3.4-5.0); Sodium 139 mmol/L (137-145); Total Protein 7.6 g/dL (6.3-8.2)
[2025-08-30 14:06] LABS: INR 1.0; Partial Thromboplastin Time 25.4 Sec (23.9-30.70); Prothrombin Time 10.6 Seconds (9.50-12.1)
[2025-08-30 14:13] LABS: NT Pro B Type Natriuretic Pept 104 pg/mL (19.9-100)
[2025-08-30 14:16] LABS: Troponin I < 0.012 ng/mL (0.000-0.034)
[2025-08-30 14:28] LABS: Influenza A QL RT-PCR Negative (Negative); Influenza B QL RT-PCR Negative (Negative); RSV RNA, RT-PCR Negative (Negative); SARS-CoV-2 RNA PCR Negative (Negative)
--- NOTE | 2025-08-30 15:44 | PC.NURSE ---
dr romero in with pt discussing plan of care
[2025-08-30] MEDS: traMADol HCL (*CRX) 50 MG TABLET 100 MG PO ×2 (16:03→19:47)
[2025-08-30] MEDS: SODIUM CHLORIDE 0.9% IV 1,000 ML 999 ML IV CONT ×2 (16:10→18:28)
[2025-08-30] MEDS: cefTRIAXone 1 GM in SODIUM CHLORIDE 0.9% IV 50 ML 100 ML IVPB (18:24)
[2025-08-30] MEDS: RIVAROXABAN 10 MG TABLET 20 MG PO (19:47)
[2025-08-30] MEDS: PROCHLORPERAZINE EDISYLATE 10 MG/2 ML VIAL IM (19:47)
[2025-08-30] MEDS: SODIUM CHLORIDE 0.9% IV 1,000 ML 150 ML IV CONT (19:48)
--- NOTE | 2025-08-30 19:54 | ADMGEN ---
This patient, Bryce Gaspar, was admitted to 2nd Floor Room 209-1. Patient/family oriented to hospital policies and general routines including ID bracelet, bed and alarms, visiting hours, pain management, procedures, bathroom and other care routines, personal items, smoking policy, room service/diet, and visiting hours. Information on how to activate the Rapid Response Team has been discussed. Patient/Family are encouraged to report perceived risks to care and to ask questions if they do not understand what they are told or what they should do.
[2025-08-31] VITALS (8 sets, daily range): BP systolic 98–182; BP diastolic 56–88; PULSE 60–87; RESP 15–20; TEMP 36.3–37.4; O2SAT 91–99
[2025-08-31] MEDS: PROCHLORPERAZINE EDISYLATE 10 MG/2 ML VIAL IM ×3 (03:34→22:04)
[2025-08-31] MEDS: SODIUM CHLORIDE 0.9% IV 1,000 ML 150 ML IV CONT ×3 (03:39→21:09)
[2025-08-31 05:48] LABS: Hematocrit 39.7 % (35.0-49.0); Hemoglobin 12.6 g/dL (12.0-15.0); Immature Granulocyte Percent A 0.5 % (0.0-0.0); Lymphocytes Absolute Auto 1.83 K/mm3 (1.10-4.50); Mean Corpuscular HGB Conc 31.7 g/dL (32-36); Mean Corpuscular Hemoglobin 25.6 pg (27.0-31.0); Mean Corpuscular Volume 80.7 fL (78.0-102.0); Nucleated Red Blood Cells Absolute Auto 0.00 K/mm3 (0.00-0.00); Nucleated Red Blood Cells Perc 0.0 % (0-0.0); Platelet Count Result 348 K/mm3 (150-420); Red Blood Count 4.92 M/mm3 (4.20-5.40); White Blood Count 10.8 K/mm3 (4.8-10.8)
[2025-08-31 06:03] LABS: Alanine Aminotransferase 63 U/L (6-35); Albumin Level 4.0 g/dL (3.5-5.1); Alkaline Phosphatase 104 U/L (38-126); Anion Gap 9 mmol/L (4-12); Aspartate Amino Transferase 45 U/L (14-36); Bilirubin,Total 0.4 mg/dL (0.2-1.3); Blood Urea Nitrogen 10 mg/dL (7-17); Calcium 9.4 mg/dL (8.4-10.2); Carbon Dioxide 20 mmol/L (22-30); Chloride 110 mmol/L (98-107); Estimated CRCL calculation 82 ml/min; Estimated Glomerular Filt Rate > 60; Glucose 135 mg/dL (65-110); Osmolality Calculated 289 mOsm/kg (285-295); Potassium 4.6 mmol/L (3.4-5.0); Sodium 139 mmol/L (137-145); Total Protein 6.6 g/dL (6.3-8.2)
[2025-08-31 09:16] LABS: Cannabinoid Screen Urine Positive (Negative)
[2025-08-31] MEDS: FERROUS SULFATE 325 MG TABLET BY MOUTH (09:29)
[2025-08-31] MEDS: TOPIRAMATE 25 MG TABLET 50 MG PO ×2 (09:29→20:57)
[2025-08-31] MEDS: CLOPIDOGREL BISULFATE 75 MG TABLET PO (09:29)
[2025-08-31] MEDS: traMADol HCL (*CRX) 50 MG TABLET 100 MG PO ×2 (09:40→22:23)
[2025-08-31] MEDS: ONDANSETRON INJ 4 MG/2 ML VIAL IV PUSH ×2 (09:49→15:33)
--- NOTE | 2025-08-31 10:02 | PM.IMHP2 ---
H&P: HPI History of Present Illness Date/Time: 08/31/25 10:02 Chief Complaint: nausea and vomiting Narrative: Patient is a 44 year old female with PMH of CAD, CA s/p stents, atrial thrombus, gastroparesis, Hamm's esophagus and history of DVT. Patient presented to the ER with complaints of intractable nausea and vomiting x 3-4 days. Patient reported she has been having nausea and vomiting x 1 month, but it has worsened the past 3-4 days. In the ER the patient's labs showed BUN 13, creatinine 1.05, lactic acid 3.2. UA showed trace leukocyte esterase and 10-15 wbc. Negative Covid, influenza and RSV swab. CXR clear and CTA chest negative for PE. Patient was given IV ceftriaxone, IV antiemetics and IV fluids. Patient was admitted for further evaluation and treatment. Patient admits to marijuana use and reports she has had an increased usage the past few days due to stressors. UDS obtained and positive for cannabinoids. Patient appears to have cyclic vomiting syndrome due to Cannabis use. Patient was vomiting overnight large amounts and still nauseated and vomiting this morning. Will continue IV fluids, add compazine IM PRN. Patient educated on cessation of cannabis containing products. Review of Systems Review of Systems: All systems reviewed & are unremarkable except as noted in HPI and below PMFSH Past Medical History Medical History Adenomatous colon polyp Hamm's esophagus with esophagitis Nausea and vomiting in adult Gastroparesis Hiatal hernia Hamm esophagus Blood in stool Encounter for Routine Gynecological Examination History of miscarriage Heart attack PTSD (post-traumatic stress disorder) GERD (gastroesophageal reflux disease) Heart attack Cervical cancer Anxiety History of blood clots Headache, migraine Depression Allergies Surgical History Surgical History History of colonoscopy History of esophagogastroduodenoscopy (EGD) H/O laparoscopy Status post balloon dilatation of esophageal stricture 9years old Fibroid, uterine 2017 Malignant tumor of uterus 2016 H/O tubal ligation 2005 History of appendectomy age 10 History of cholecystectomy age 29 Hx of anterior cruciate ligament surgery 03/2018 Hx of foot surgery 2 screws and ligament left foot 07/2019 H/O heart artery stent 03/08/2020 Family History Family History Father Carcinoma of colon Hypertension Depression Anxiety Mother Asthma Breast cancer Anxiety Depression Heart disease Cerebrovascular accident Sibling Asthma Anxiety Depression Unknown Cancer Son Asthma Anxiety Depression Heart disease Grandparent Heart disease Cerebrovascular accident Breast cancer Grandparent Diabetes mellitus Heart disease Cerebrovascular accident Social History Social History Smoking packs per day: 0.5 Smoking cigarettes per day: 10.0 Years smoked: 20 Smoking pack-years: 10.00 Smoking status: Former smoker Tobacco type: cigarettes Smoking end date: 03/09/20 Alcohol intake: never Alcohol use details: social Substance use: current Substance use type: marijuana Other substance usage details: Medical Marijuana Last use: 08/29/2025 Lack of Transportation: No Lack of Food: Sometimes True Current Housing: I Have Housing Concerned About Future Housing: No Difficulty Paying Gas/Electric Bills: No Difficulty Paying for Meds: YES Currently Unemployed: No Education: Decline to Answer Difficulty w/ Childcare or Family Care: No Living arrangements: with family Occupation/Education: unemployed Gender identity (if verbalized by the patient): Female Spiritual care concerns: No Agree to blood products: Yes Meds Home Medications and Allergies Home Medications ?Medication ?Instructions ?Recorded ?Confirmed ?Type melatonin 5 mg capsule 5 mg PO DAILY 11/25/20 08/30/25 History ferrous sulfate 325 mg (65 mg 325 mg PO DAILY #90 tabs 06/30/21 08/30/25 Rx iron) tablet metoclopramide HCl 5 mg tablet 5 mg PO Q8H 1 month #90 tabs 07/02/21 08/30/25 Rx clopidogrel 75 mg tablet See Rx Instructions .Route 10/05/21 08/30/25 Rx .COMPLEX #90 tabs folic acid 1 mg tablet See Rx Instructions .Route 10/05/21 08/30/25 Rx .COMPLEX #90 tabs albuterol 90 mcg/actuation aerosol 90 mcg inhalation Q6H PRN wheezing 08/30/25 08/30/25 History inhaler shortness of breath amoxicillin 875 mg-potassium 1 tablet PO BID 10 days #20 tabs 08/30/25 Rx clavulanate 125 mg tablet aripiprazole 10 mg tablet (Abilify) 10 mg PO DAILY 08/30/25 08/30/25 History gabapentin 100 mg capsule 100 mg PO Q12H PRN nerve pain 08/30/25 08/30/25 History hydroxyzine pamoate 25 mg capsule 25 mg PO Q8H PRN anxiety 08/30/25 08/30/25 History melatonin 10 mg capsule 10 mg PO HS 08/30/25 08/30/25 History nitroglycerin 0.4 mg sublingual 0.4 mg sublingual Q5M PRN chest 08/30/25 08/30/25 History tablet pain omeprazole 20 mg capsule,delayed 20 mg PO DAILY 08/30/25 08/30/25 History release ondansetron 4 mg disintegrating 4 mg PO Q6H PRN nausea and 08/30/25 Rx tablet vomiting #20 tabs prednisone 20 mg tablet 40 mg (2 x 20 mg) PO DAILY 3 days 08/30/25 Rx #6 tabs rosuvastatin 20 mg tablet (Crestor) 20 mg PO DAILY 08/30/25 08/30/25 History topiramate 50 mg tablet 50 mg PO Q12H 08/30/25 08/30/25 History tramadol 50 mg tablet 50 mg PO Q8H PRN pain #20 tabs 08/30/25 Rx Allergies Allergy/AdvReac Type Severity Reaction Status Date / Time codeine AdvReac Mild Nausea Verified 08/30/25 19:55 Vital Signs Vital Signs - 24 hr 08/30/25 12:45 08/30/25 13:15 08/30/25 14:42 Temperature 97.6 F Pulse Rate 61 84 Respiratory Rate 16 20 Blood Pressure 133/92 H 132/76 Pulse Oximetry 99 98 Oxygen Delivery Room Air Room Air Room Air 08/30/25 16:55 08/30/25 17:21 08/30/25 17:30 Temperature Pulse Rate 75 Respiratory Rate 20 Blood Pressure 109/98 H Pulse Oximetry 98 100 99 Oxygen Delivery Room Air 08/30/25 17:31 08/30/25 17:45 08/30/25 17:46 Temperature Pulse Rate 80 Respiratory Rate 18 Blood Pressure 159/79 H Pulse Oximetry 96 99 100 Oxygen Delivery Room Air 08/30/25 18:00 08/30/25 18:15 08/30/25 18:30 Temperature Pulse Rate 78 Respiratory Rate 20 Blood Pressure 159/72 H Pulse Oximetry 99 100 100 Oxygen Delivery Room Air 08/30/25 20:00 08/30/25 22:00 08/31/25 00:00 Temperature 97.2 F L 97.9 F Pulse Rate 48 L 76 Respiratory Rate 17 20 15 Blood Pressure 138/60 120/65 Pulse Oximetry 99 99 Oxygen Delivery Room Air Room Air 08/31/25 00:00 08/31/25 03:46 08/31/25 04:00 Temperature 97.4 F L Pulse Rate 63 83 60 Respiratory Rate 16 Blood Pressure 98/56 L Pulse Oximetry 98 Oxygen Delivery Room Air Exam Const: General: comfortable and no acute distress HENMT: Face/Nose/Sinus: Normal nares present Mouth: Yes moist mucous membranes Eyes: General: appearance normal, both eyes and all related structures Sclera: sclerae normal Neck: Neck: supple Resp: Effort & Inspection: normal respiratory effort Auscultation: clear to auscultation bilaterally Cardio: Rate: regular rate Rhythm: regular rhythm GI: GI Palp: Yes Soft to palpation Auscultation: normal bowel sounds Skin: General skin exam: normal color and no rashes or lesions noted Neuro: General: gait normal Speech: normal speech Motor exam (neuro): 5/5 motor strength present throughout Sensory Exam: normal sensation Extrem: General: normal to inspection Psych: Mental Status: mental status grossly normal Affect: normal affect Results Labs Labs: Short CBC 08/30/25 08/31/25 Range/Units 13:42 05:11 WBC 10.1 10.8 (4.8-10.8) K/mm3 Hgb 14.1 12.6 (12.0-15.0) g/dL Hct 44.6 39.7 (35.0-49.0) % Plt Count 335 348 (150-420) K/mm3 [facility] 08/30/25 08/31/25 13:42 05:11 Sodium 139 139 Potassium 4.1 4.6 Chloride 110 H 110 H Carbon Dioxide 15 L 20 L BUN 13 D 10 Creatinine 1.05 H 0.90 Glucose 166 H 135 H Calcium 10.2 9.4 Cardiac Enzymes 08/30/25 Range/Units 13:42 Total Creatine Kinase 110 (30-135) U/L Troponin I < 0.012 (0.000-0.034) ng/mL Liver Function 08/30/25 08/31/25 Range/Units 13:42 05:11 Total Bilirubin 0.5 0.4 (0.2-1.3) mg/dL AST 86 H 45 H (14-36) U/L ALT 80 H 63 H (6-35) U/L Alkaline Phosphatase 145 H 104 (38-126) U/L Albumin 4.6 4.0 (3.5-5.1) g/dL Urine 08/30/25 Range/Units 13:44 Urine Color Yellow (Yellow) Urine Appearance Clear (Clear) Urine pH 5.5 (5.0-8.0) Ur Specific [place] >= 1.030 H (1.010-1.020) Urine Protein 1+ H (Negative) Urine Glucose (UA) Negative (Negative) Imaging CT scan - abdomen: Radiologist's impression: Ordering Physician: Josh Herron MD Date of Service: 08/30/25 Procedure(s): CTA chest PE protocol Accession Number(s): [id number] cc: Harvey, MD Ruma; Josh Herron MD~ EXAMINATION: CTA chest PE protocol DATE: 08/30/2025 15:25 SITE INTERPRETER INDICATION: Chest pain for one month. TECHNIQUE: Computed tomographic angiography (CTA) of the chest was performed with 100 mL Omnipaque-350 intravenous contrast. The dose-length product was 974.35 mGy-cm. Maximum intensity projection 3D-reconstructions of the aorta and other arteries were constructed by the technologist on a separate workstation. Automated exposure control and iterative reconstruction technique were employed. COMPARISON: None. FINDINGS: Study technically adequate without evidence for pulmonary embolism. Small hiatal hernia. Heart size normal. No thoracic lymphadenopathy. No significant pleural or pericardial effusion. Nonobstructing left nephrolithiasis. There is cortical scarring of the left kidney. Calcified granuloma left lower lobe. Mild thoracic spondylosis. No focal airspace consolidation. No focal pneumonia. No suspicious pulmonary nodules or masses. IMPRESSION: 1. No acute cardiopulmonary disease. 2: Small hiatal hernia. 3: Nonobstructing left nephrolithiasis with left renal cortical scarring. Reviewed, dictated and finalized at location O. INTERPRETER Quality VTE Prophylaxis VTE prophylaxis: pharmacologic ordered Assessment and Plan Assessment and plan (1) Intractable nausea and vomiting: Code(s): R11.2 - Nausea with vomiting, unspecified Status: Acute Assessment and Plan: patient with reports of N/V x 1 month that worsened in the last 3-4 days patient reports marijuana use that has been heavier the last few days UDS positive for cannabinoids suspect due to cyclic vomiting syndrome from cannabinoids discussed cessation with patient IV Zofran, add IM Compazine PRN as second line agent IV fluids advance diet when patient is able to tolerate AM labs (2) Cyclic vomiting syndrome: Code(s): R11.15 - Cyclical vomiting syndrome unrelated to migraine Status: Acute Assessment and Plan: see above (3) High anion gap metabolic acidosis: Code(s): E87.29 - Other acidosis Status: Acute Assessment and Plan: initial lactic acid was 3.2 s/p IV fluids repeat level 1.7 resolved (4) UTI (urinary tract infection): Qualifiers: Hematuria presence: without hematuria Urinary tract infection type: site unspecified Qualified Code(s): N39.0 - Urinary tract infection, site not specified Code(s): N39.0 - Urinary tract infection, site not specified Status: Acute Assessment and Plan: UA with trace leukocyte esterase, 10-15 wbc s/p IV ceftriaxone in ED no reflex to culture ruled out (5) Hamm esophagus: Qualifiers: Hamm's esophagus type: without dysplasia Qualified Code(s): K22.70 - Hamm's esophagus without dysplasia Code(s): K22.70 - Hamm's esophagus without dysplasia Status: Acute Assessment and Plan: continue pantoprazole (6) History of CA (myocardial infarction): Code(s): I25.2 - Old myocardial infarction Status: Acute Assessment and Plan: patient with history of CA in 2019 s/p stents patient reports she does not take plavix anymore restart aspirin once patient is tolerating PO (7) History of DVT (deep vein thrombosis): Code(s): Z86.718 - Personal history of other venous thrombosis and embolism Status: Acute Assessment and Plan: per patient history of DVT, PE (?) and atrial thrombus in 2023 treated at [facility] reports she is supposed to be on Xarelto for lifetime but stopped taking it due to the cost restart xarelto while in the hospital and discuss other options for blood thinners as patient has history of non-compliance with medications as an outpatient s/p chest CTA negative for PE Prior Studies I have reviewed the following patient records and this information was taken into consideration when formulating the assessment and plan.: previous labs, previous ER visits and previous hospitalizations
[2025-08-31] MEDS: MAG HYDROX/AL HYDROX/SIMETH 30 ML UDC PO ×2 (10:14→15:41)
--- NOTE | 2025-08-31 14:27 | PC.NURSE ---
Called to pt room, she informs she has vaginal pain with bleeding that is not menstral blood. Informed will make provider aware but until then next time this happens this film writer will have to see blood. Patient agrees.
--- NOTE | 2025-08-31 15:04 | PC.NURSE ---
Orders recieved for Stool specimen/culture. Patient still having some spotting vaginally.
--- NOTE | 2025-08-31 15:06 | WNDPHOTO ---
PHOTO ONLY - See Nursing Notes and/ or assessments for documentation.
[2025-08-31] MEDS: RIVAROXABAN 10 MG TABLET 20 MG PO (17:05)
[2025-09-01] VITALS: BP 93/44; PULSE 59; PULSE 62; RESP 16; TEMP 36.3; O2SAT 98
[2025-09-01] MEDS: SODIUM CHLORIDE 0.9% IV 1,000 ML 150 ML IV CONT (03:32)
[2025-09-01 03:38] VITALS: PULSE 53
[2025-09-01 04:00] VITALS: BP 93/50; PULSE 64; RESP 15; TEMP 36.6; O2SAT 97
[2025-09-01 06:39] LABS: Hematocrit 36.9 % (35.0-49.0); Hemoglobin 11.4 g/dL (12.0-15.0); Immature Granulocyte Percent A 0.5 % (0.0-0.0); Lymphocytes Absolute Auto 3.25 K/mm3 (1.10-4.50); Mean Corpuscular HGB Conc 30.9 g/dL (32-36); Mean Corpuscular Hemoglobin 25.3 pg (27.0-31.0); Mean Corpuscular Volume 81.8 fL (78.0-102.0); Nucleated Red Blood Cells Absolute Auto 0.00 K/mm3 (0.00-0.00); Nucleated Red Blood Cells Perc 0.0 % (0-0.0); Platelet Count Result 319 K/mm3 (150-420); Red Blood Count 4.51 M/mm3 (4.20-5.40); White Blood Count 8.2 K/mm3 (4.8-10.8)
[2025-09-01 06:49] LABS: Toxigenic C. Diff NEGATIVE (NEGATIVE)
[2025-09-01 06:53] LABS: Alanine Aminotransferase 59 U/L (6-35); Albumin Level 3.6 g/dL (3.5-5.1); Alkaline Phosphatase 93 U/L (38-126); Anion Gap 8 mmol/L (4-12); Aspartate Amino Transferase 55 U/L (14-36); Bilirubin,Total 0.5 mg/dL (0.2-1.3); Blood Urea Nitrogen 8 mg/dL (7-17); Calcium 8.7 mg/dL (8.4-10.2); Carbon Dioxide 19 mmol/L (22-30); Chloride 115 mmol/L (98-107); Estimated CRCL calculation 78 ml/min; Estimated Glomerular Filt Rate > 60; Glucose 93 mg/dL (65-110); Osmolality Calculated 292 mOsm/kg (285-295); Potassium 3.9 mmol/L (3.4-5.0); Sodium 142 mmol/L (137-145); Total Protein 6.0 g/dL (6.3-8.2)
[2025-09-01 08:00] VITALS: BP 136/62; PULSE 100; PULSE 68; RESP 18; TEMP 37; O2SAT 92
--- NOTE | 2025-09-01 09:24 | P.PNIM_ITS ---
Assessment and Plan Assessment and Plan (1) Intractable nausea and vomiting: Code(s): R11.2 - Nausea with vomiting, unspecified Status: Acute Assessment and Plan: patient with reports of N/V x 1 month that worsened in the last 3-4 days patient reports marijuana use that has been heavier the last few days UDS positive for cannabinoids suspect due to cyclic vomiting syndrome from cannabinoids discussed cessation with patient IV Zofran, add IM Compazine PRN as second line agent IV fluids advance diet when patient is able to tolerate patient was not nauseated overnight, however she is nauseated and dry heaving upon awakening this morning nurse to give antiemetics at this time AM labs (2) Cyclic vomiting syndrome: Code(s): R11.15 - Cyclical vomiting syndrome unrelated to migraine Status: Acute Assessment and Plan: see above (3) High anion gap metabolic acidosis: Code(s): E87.29 - Other acidosis Status: Acute Assessment and Plan: initial lactic acid was 3.2 s/p IV fluids repeat level 1.7 resolved (4) UTI (urinary tract infection): Qualifiers: Hematuria presence: without hematuria Urinary tract infection type: site unspecified Qualified Code(s): N39.0 - Urinary tract infection, site not specified Code(s): N39.0 - Urinary tract infection, site not specified Status: Acute Assessment and Plan: UA with trace leukocyte esterase, 10-15 wbc s/p IV ceftriaxone in ED no reflex to culture ruled out (5) Hamm esophagus: Qualifiers: Hamm's esophagus type: without dysplasia Qualified Code(s): K22.70 - Hamm's esophagus without dysplasia Code(s): K22.70 - Hamm's esophagus without dysplasia Status: Acute Assessment and Plan: continue pantoprazole (6) History of VT (myocardial infarction): Code(s): I25.2 - Old myocardial infarction Status: Acute Assessment and Plan: patient with history of VT in 2019 s/p stents patient reports she does not take plavix anymore restart aspirin once patient is tolerating PO (7) History of DVT (deep vein thrombosis): Code(s): Z86.718 - Personal history of other venous thrombosis and embolism Status: Acute Assessment and Plan: per patient history of DVT, PE (?) and atrial thrombus in 2023 treated at [facility] reports she is supposed to be on Xarelto for lifetime but stopped taking it due to the cost restart xarelto while in the hospital and discuss other options for blood thinners as patient has history of non-compliance with medications as an outpatient s/p chest CTA negative for PE Subjective Date/time seen: 09/01/25 09:24 Interval history: Patient seen for a follow up visit. Patient sitting up in chair, nauseated, dry heaving. Patient reports muscle pain to her upper body from the dry heaving. Patient reports she slept okay overnight and did not have nausea or vomiting. She reports she became nauseated upon awakening this morning. Patient to be given antiemetics, continues on IV fluids. Patient had an episode of diarrhea yesterday and stool was sent for c-diff and stool cutures. C-diff is negative and stool cultures are pending. Review of Systems Review of Systems: All systems reviewed & are unremarkable except as noted in HPI and below Exam Const: Other: dry heaving, ill-appearing female HENMT: Face/Nose/Sinus: Normal nares present Mouth: Yes moist mucous membranes Eyes: General: appearance normal, both eyes and all related structures Sclera: sclerae normal Neck: Neck: supple Resp: Effort & Inspection: normal respiratory effort Auscultation: clear to auscultation bilaterally Cardio: Rate: regular rate Rhythm: regular rhythm GI: Auscultation: normal bowel sounds Skin: General skin exam: normal color and no rashes or lesions noted Neuro: General: gait normal Speech: normal speech Motor exam (neuro): 5/5 motor strength present throughout Sensory Exam: normal sensation Extrem: General: normal to inspection Psych: Mental Status: mental status grossly normal Affect: normal affect Objective Data Vital Signs Vital Signs: Vital Signs - 24 hr 08/31/25 12:00 08/31/25 12:00 08/31/25 16:00 Temperature 97.9 F Pulse Rate 80 80 80 Respiratory Rate 17 Blood Pressure 130/80 Pulse Oximetry 98 Oxygen Delivery Room Air 08/31/25 16:00 08/31/25 18:00 08/31/25 20:00 Temperature 98.6 F 99.4 F 98.1 F Pulse Rate 80 85 71 Respiratory Rate 16 18 20 Blood Pressure 182/68 H 128/63 166/69 H Pulse Oximetry 98 91 99 Oxygen Delivery Room Air Room Air Room Air 08/31/25 20:00 09/01/25 00:00 09/01/25 00:00 Temperature 97.3 F L Pulse Rate 80 62 59 L Respiratory Rate 16 Blood Pressure 93/44 L Pulse Oximetry 98 Oxygen Delivery Room Air 09/01/25 03:38 09/01/25 04:00 Temperature 97.8 F Pulse Rate 53 L 64 Respiratory Rate 15 Blood Pressure 93/50 L Pulse Oximetry 97 Oxygen Delivery Room Air Intake/Output Intake/Output: Intake & Output 08/29/25 08/30/25 08/31/25 09/01/25 23:59 23:59 23:59 23:59 Intake Total 2049 4340 1020 Output Total 725 75 Balance 2049 7720 945 Meds/Results Medications: Active Medications Generic Name Dose Route Start Last Admin Trade Name Freq PRN Reason Stop Dose Admin Acetaminophen 1,000 mg 09/01/25 08:35 Acetaminophen 500 Mg Tablet PO Q6H PRN Mild Pain (1-3) or Fever Al Hydrox/Mg Hydrox/Simethicone 30 ml 08/31/25 09:51 08/31/25 15:41 Mag Hydrox/Al Hydrox/Simeth 30 Ml Udc PO 30 ml Q6H PRN Administration Indigestion Aripiprazole 10 mg 08/31/25 09:00 08/31/25 09:49 Aripiprazole 5 Mg Tablet PO 10 mg QAM OVI Administration Ferrous Sulfate 325 mg 08/31/25 09:00 08/31/25 09:29 Ferrous Sulfate 325 Mg Tablet BY MOUTH 325 mg DAILY OVI Administration Gabapentin 100 mg 08/31/25 01:24 Gabapentin 100 Mg Capsule PO Q12H PRN nerve pain Hydroxyzine Pamoate 25 mg 08/31/25 01:24 08/31/25 20:57 Hydroxyzine Pamoate 25 Mg Capsule PO 25 mg Q8H PRN Administration Anxiety Sodium Chloride 1,000 mls @ 100 mls/hr 08/30/25 18:05 09/01/25 03:32 Normal Saline Iv IV CONT 150 mls/hr .Q10H OVI Administration Ondansetron HCl 4 mg 09/01/25 08:36 Ondansetron Hcl Odt 4 Mg Tablet PO Q6H PRN Nausea And Vomiting Prochlorperazine Edisylate 10 mg 08/30/25 18:10 08/31/25 22:04 Prochlorperazine Edisylate 10 Mg/2 Ml Vial IM 10 mg Q6H PRN Administration Nausea And Vomiting Prochlorperazine Maleate 10 mg 09/01/25 08:35 Prochlorperazine Maleate 5 Mg Tablet PO Q6H PRN Nausea And Vomiting Promethazine HCl 25 mg 09/01/25 08:35 Promethazine Hcl 25 Mg Tablet PO Q4H PRN Nausea And Vomiting Rivaroxaban 20 mg 08/31/25 17:00 08/31/25 17:05 Rivaroxaban 10 Mg Tablet PO 20 mg DAILY@1700 OVI Administration Topiramate 50 mg 08/31/25 09:00 08/31/25 20:57 Topiramate 25 Mg Tablet PO 50 mg Q12HR OVI Administration Tramadol HCl 100 mg 08/30/25 18:10 08/31/25 22:23 Tramadol Hcl (*Crx) 50 Mg Tablet PO 100 mg Q8H PRN Administration Pain 4-6 Radiology Results: ITS Impressions Chest X-Ray 08/30/25 13:54 IMPRESSION: 1: NO ACUTE CARDIOPULMONARY DISEASE. Chest CTA 08/30/25 15:25 IMPRESSION: 1. No acute cardiopulmonary disease. 2: Small hiatal hernia. 3: Nonobstructing left nephrolithiasis with left renal cortical scarring. Labs Labs: Laboratory Results - last 24 hr 08/31/25 09/01/25 17:10 05:14 WBC 8.2 RBC 4.51 Hgb 11.4 L Hct 36.9 MCV 81.8 MCH 25.3 L MCHC 30.9 L RDW 17.2 H Plt Count 319 MPV 11.2 Immature Gran % (Auto) 0.5 H Neut % (Auto) 52.4 Lymph % (Auto) 39.6 Mayes % (Auto) 6.3 Eos % (Auto) 0.5 L Baso % (Auto) 0.7 Lymph # (Auto) 3.25 Mayes # (Auto) 0.52 Eos # (Auto) 0.04 Baso # (Auto) 0.06 Abs Immat Gran (auto) 0.04 H Absolute Neuts (auto) 4.29 Absolute Nucleated RBC 0.00 Nucleated RBC % 0.0 Sodium 142 Potassium 3.9 Chloride 115 H Carbon Dioxide 19 L Anion Gap 8 BUN 8 Creatinine 0.95 Estim Creat Clear Calc 78 Estimated GFR > 60 Glucose 93 Calculated Osmolality 292 Calcium 8.7 Total Bilirubin 0.5 AST 55 H ALT 59 H Alkaline Phosphatase 93 Total Protein 6.0 L Albumin 3.6 C. difficile (PCR) Negative Quality VTE Prophylaxis VTE prophylaxis: pharmacologic ordered
[2025-09-01] MEDS: ONDANSETRON HCL ODT 4 MG TABLET PO (09:37)
[2025-09-01] MEDS: PROCHLORPERAZINE EDISYLATE 10 MG/2 ML VIAL IM (10:04)
[2025-09-01] MEDS: traMADol HCL (*CRX) 50 MG TABLET 100 MG PO (10:44)
[2025-09-01] MEDS: TOPIRAMATE 25 MG TABLET 50 MG PO ×2 (10:44→21:08)
[2025-09-01] MEDS: FERROUS SULFATE 325 MG TABLET BY MOUTH (10:45)
[2025-09-01] MEDS: SODIUM CHLORIDE 0.9% IV 1,000 ML 100 ML IV CONT ×2 (10:59→21:08)
--- NOTE | 2025-09-01 11:05 | PC.NURSE ---
All 0900 meds given late related to nausea and vomiting.
[2025-09-01] MEDS: HALOPERIDOL LACTATE 5 MG/ML VIAL IV PUSH (12:22)
[2025-09-01] MEDS: CAPSAICIN 0.025% CREAM 60 GM TUBE 1 APPLIC TOPICAL ×2 (12:22→16:55)
--- NOTE | 2025-09-01 13:18 | PC.NURSE ---
spoke to Antonia pierson/zaina continued N/V after PRN meds this morning. New orders for Haldol 5mg IV and capsacin Cream ordered. Meds administered per order. Patient resting in bed, resp even unlabored, no distress noted with N/V noted at this time.
[2025-09-01 16:00] VITALS: BP 127/70; PULSE 58; RESP 16; TEMP 36.3; O2SAT 96
[2025-09-01] MEDS: RIVAROXABAN 10 MG TABLET 20 MG PO (16:53)
[2025-09-01] MEDS: PROCHLORPERAZINE MALEATE 5 MG TABLET 10 MG PO (17:55)
[2025-09-01] MEDS: GABAPENTIN 100 MG CAPSULE PO (21:08)
[2025-09-01] MEDS: PROMETHAZINE HCL 25 MG TABLET PO (21:14)
[2025-09-01 23:46] VITALS: BP 160/57; PULSE 64; RESP 19; TEMP 36.4; O2SAT 97
[2025-09-02 08:00] VITALS: BP 158/75; PULSE 68; RESP 18; TEMP 36.6; O2SAT 97
[2025-09-02] MEDS: ACETAMINOPHEN 500 MG TABLET 1000 MG PO (08:59)
[2025-09-02] MEDS: PROCHLORPERAZINE MALEATE 5 MG TABLET 10 MG PO (09:00)
[2025-09-02] MEDS: FERROUS SULFATE 325 MG TABLET BY MOUTH (09:00)
[2025-09-02] MEDS: TOPIRAMATE 25 MG TABLET 50 MG PO (09:00)
--- NOTE | 2025-09-02 09:23 | P.DS_ITS ---
DS: Admitting Diagnosis Discharge Date 09/02/2025 Admitting Diagnosis Cyclic Vomiting, Weakness DS: Discharge Diagnosis Discharge Diagnosis (1) Cyclic vomiting syndrome: Code(s): R11.15 - Cyclical vomiting syndrome unrelated to migraine Status: Acute Assessment and Plan: compazine drink plenty of fluids sip avoid marijuana (2) Viral syndrome: Code(s): B34.9 - Viral infection, unspecified Status: Acute Assessment and Plan: treat symptoms (3) Hamm's esophagus with esophagitis: Code(s): K22.70 - Hamm's esophagus without dysplasia; K20.90 - Esophagitis, unspecified without bleeding Status: Acute Assessment and Plan: Omperazole (4) Nausea and vomiting in adult: Code(s): R11.2 - Nausea with vomiting, unspecified Status: Acute Assessment and Plan: see above DS: Summary Hospital Course Reason for hospitalization: Cyclic nausea and vomiting , [employer] Hospital Course: This is a 44 year old who has a significant past medical history of HTN, CAD, Hamm Esophagus, cyclic vomiting , marijuan use , Stent placement with recurrent thrombus note and a thrombolectomy in 2020 with a [place]. This visit she is being treat for vomiting in which she has been getting compazine. Patient currently is int he room eating. My recommendation is she stay on clear liquids until she ia ble to tolerate general food . Patient has significant cardiac and GI history and needs to follow up with Cardiology and GI MD phone numbers given for her to call and schedule appointment with both. She is able to eat and drink small portion when she eat to much she beging to drive heave. Patient should discharge home and take her time with oral food. Time Spent with Patient Time attestation: Total time spent providing and/or coordinating discharge services: Exam Const: General: comfortable and no acute distress Other: dry heaving, ill-appearing female HENMT: Face/Nose/Sinus: Normal nares present Mouth: Yes moist mucous membranes Eyes: General: appearance normal, both eyes and all related structures Sclera: sclerae normal Neck: Neck: supple Resp: Effort & Inspection: normal respiratory effort Auscultation: clear to auscultation bilaterally Cardio: Rate: regular rate Rhythm: regular rhythm GI: Auscultation: normal bowel sounds Skin: General skin exam: normal color and no rashes or lesions noted Neuro: General: gait normal Speech: normal speech Motor exam (neuro): 5/5 motor strength present throughout Sensory Exam: normal sensation Extrem: General: normal to inspection Psych: Mental Status: mental status grossly normal Affect: normal affect DS: Data Data Completed and Pending Labs on day of discharge: Preliminary micro results at discharge 08/30/25 13:42 Blood Culture - Preliminary Blood 08/30/25 13:42 Blood Culture - Preliminary Blood Discharge Plan Discharge Attending physician on discharge: Janet Barney Discharging Clinician: Dileep Pina Anticipated Discharge Date/Time: 09/02/25 09:09 Patient Disposition: Home Activity: may shower Diet: as tolerated Discharge Instructions: 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 Patient Instructions: Antibiotic Form, How to Stop Smoking (DC), Cigarette Smoking and Your Health (GEN), Hamm Esophagus (DC), Cannabis Use Disorder (DC), Viral Syndrome (DC), Blood Thinners (DC) Patient Language: Bengali Stand Alone Forms: General Discharge Information Follow-up/Referrals: [facility] [Provider Group] Referral Note: Please call for an appointment Spike Borrego MD [Physician, Gastroenterology] Referral Note: Cyclic vomiting Discharge Medications: New ondansetron 4 mg tablet,disintegrating 4 mg PO Q6H PRN (Reason: nausea and vomiting) Qty: 20 0RF tramadol 50 mg tablet 50 mg PO Q8H PRN (Reason: pain) Qty: 20 0RF Rx Instructions: 1-2 tabs per dose prednisone 20 mg tablet 40 mg PO DAILY 3 Days Qty: 6 0RF amoxicillin-pot clavulanate 875-125 mg tablet 1 tablet PO BID 10 Days Qty: 20 0RF omeprazole 20 mg capsule,delayed release(DR/EC) 20 mg PO DAILY Qty: 30 2RF ondansetron 4 mg tablet,disintegrating 4 mg PO Q8H PRN (Reason: nausea and vomiting) Qty: 14 0RF prochlorperazine maleate [Compazine] 10 mg tablet 10 mg PO Q8H PRN (Reason: nausea and vomiting) Qty: 14 0RF Continued nitroglycerin 0.4 mg tablet, sublingual 0.4 mg sublingual Q5M PRN (Reason: chest pain) hydroxyzine pamoate 25 mg capsule 25 mg PO Q8H PRN (Reason: anxiety) melatonin 10 mg capsule 10 mg PO HS gabapentin 100 mg capsule 100 mg PO Q12H PRN (Reason: nerve pain) topiramate 50 mg tablet 50 mg PO Q12H rosuvastatin [Crestor] 20 mg tablet 20 mg PO DAILY aripiprazole [Abilify] 10 mg tablet 10 mg PO DAILY albuterol 90 mcg/actuation aerosol 90 mcg inhalation Q6H PRN (Reason: wheezing shortness of breath) Patient Comments: 2 puffs Q6H as needed metoclopramide HCl 5 mg tablet 5 mg PO Q8H 30 Days Qty: 90 5RF melatonin 5 mg capsule 5 mg PO DAILY ferrous sulfate 325 mg (65 mg iron) tablet 325 mg PO DAILY Qty: 90 0RF folic acid 1 mg tablet See Rx Instructions .ROUTE .COMPLEX Qty: 90 0RF Dose Instruction: Take 1 tablet by mouth once daily Rx Instructions: Take 1 tablet by mouth once daily clopidogrel 75 mg tablet See Rx Instructions .ROUTE .COMPLEX Qty: 90 0RF Dose Instruction: Take 1 tablet by mouth once daily Rx Instructions: Take 1 tablet by mouth once daily Discontinued omeprazole 20 mg capsule,delayed release(DR/EC) 20 mg PO DAILY Date of admission: 08/30/25 18:05 Primary Care Provider: Harvey,Ruma Admitting Provider: Oneil Barney Attending physician on admission: Oneil Barney Condition: Stable
--- NOTE | 2025-09-02 11:17 | PC.NURSE ---
Today at 1100 Discharge instruction discussed, medications and side effect, Importance of not smoking marijuana, follow up with GI, cardiology and PC for hospital follow up. Patient and verbally acknowledges understanding. Patient refused WC for discharge and prefers to ambulate out of building to family vehicle. Patient stable on feet with no dizziness, distress or pain stated.
--- NOTE | 2025-09-03 08:54 | PC.NURSE ---
Follow up call attempted, no answer.
--- NOTE | 2025-09-04 09:35 | PC.NURSE ---
Discharge call back completed, doing ok, no questions regarding medication or instructions
== END 2025-09-02 11:05 | disposition home or self-care (01) ==
LOC: CHSED 17:19 → CHS2ND 18:26
PROVIDERS: Nurse Practitioner Adult Health; Admitting Provider Internal Medicine; Emergency Provider Emergency Medicine; PCP Hospitalist; Visit Provider Internal Medicine
DX: R11.15 Cyclical vomiting syndrome unrelated to migraine (principal); E87.29 Other acidosis; F12.90 Cannabis use, unspecified, uncomplicated; B34.9 Viral infection, unspecified; K22.70 Barrett's esophagus without dysplasia; K21.00 Gastro-esophageal reflux disease with esophagitis, without bleeding; Z86.711 Personal history of pulmonary embolism; Z86.718 Personal history of other venous thrombosis and embolism; T45.516A Underdosing of anticoagulants, initial encounter; Z91.141 Patient's other noncompliance with medication regimen due to financial hardship; F43.10 Post-traumatic stress disorder, unspecified; Z85.41 Personal history of malignant neoplasm of cervix uteri; Z87.891 Personal history of nicotine dependence; I25.10 Atherosclerotic heart disease of native coronary artery without angina pectoris; I25.2 Old myocardial infarction; Z20.822 Contact with and (suspected) exposure to COVID-19
CPT/HCPCS: 36415; 71045; 71275; 80053; 80307; 81001; 82550; 83605; 83880; 84484; 85025; 85610; 85730; 87040; 87045; 87046; 87427; 87493; 87637; 93005; 96360; 96361; 96365; 96374; 96375; 96376; 99285; A9270; G0378; J0696; J0780; J1630; J2405; J7030; Q9967